=== PATIENT | male | born 1935 | race Caucasian/White ===

== ENCOUNTER 2019-07-28 03:42 | Emergency (ER) | payer BC, MEDICARE ==
--- NOTE | 2019-07-28 04:09 | PDOC ---
Attending Attestation - Resident Resident Name: Dang Thornton - ED Attending Attestation I have performed the following: I have examined & evaluated the patient, The case was reviewed & discussed with the resident, I agree w/resident's findings & plan - HPI HPI: 07/28/19 06:57 see resident hpi - Physicial Exam PE: 07/28/19 06:57 agree with resident exam - Medical Decision Making 07/28/19 06:57 83-year-old male with bleeding under a newly placed bridge currently on Eliquis Patient bleeding approximately 2 to 3 hours prior to arrival Direct pressure applied in our emergency department to the best of our abilities with gauze both to the gumline and directly to the bridge in attempt to tamponade the area which were unsuccessful After approximately 2 hours of attempts call placed to the OMFS service at [facility] who have graciously accepted the patient to the emergency department for evaluation by their service
[2019-07-28 04:45] VITALS: BMI 22.2
[2019-07-28] MEDS ORDERED: TRANEXAMIC ACID 1000 MG/10 ML VIAL IVPUSH ONE (04:54)
[2019-07-28] MEDS ORDERED: TRANEXAMIC ACID 1000 MG/10 ML VIAL ONE (04:59)
[2019-07-28 05:43] LABS: BASO % 0.6 % (0-2.0); EOS % 2.5 % (0-4.5); HEMOGLOBIN 11.7 GM/dL (11.7-16.9); LYMPH % 13.8 % (8-40); MCH 29.6 pg (25.7-33.7); MCHC 33.3 g/dl (32.0-35.9); MEAN CELL VOLUME 88.8 fl (80-96); MEAN PLT VOLUME 8.2 fl (7.5-11.1); MONO % 11.2 % (3.8-10.2); NEUT % 71.9 % (42.8-82.8); PLATELET COUNT 190 K/MM3 (134-434); RBC 3.94 M/mm3 (4.00-5.60); RDW 15.5 % (11.9-15.9); WHITE BLOOD COUNT 5.2 K/mm3 (4.0-10.0)
--- NOTE | 2019-07-28 05:43 | PDOC ---
History of Present Illness - General Chief Complaint: Vomiting Blood Stated Complaint: BLEEDING OF MOUTH Time Seen by Provider: 07/28/19 04:05 History Source: Patient Exam Limitations: No Limitations - History of Present Illness Initial Comments: 07/28/19 05:38 83y M with PMH of CVA on Eliquis, DM, HTN presenting to ED with complaints of oral bleeding. Patient had upper incisors removed on 07/20/19 and a temporary bridge placed 07/21/19 without complication. Patient states that this morning at around 1am he noticed blood continuously flowing out. He denies trauma but endorses eating something hard. Denies headache, dizziness, lightheadedness, chest pain, weakness, numbness, tingling. PMH: see hpi Meds: Eliquis, Januvia Allergies: nkda Past History - Past Medical History Allergies/Adverse Reactions: Allergies Allergy/AdvReac Type Severity Reaction Status Date / Time No Known Allergies Allergy Verified 07/28/19 04:36 Home Medications: Ambulatory Orders Apixaban [Eliquis -] 5 mg PO BID tablet 10/25/14 Sitagliptin Phosphate [Januvia -] 50 mg PO DAILY@0700 #30 tablet 07/18/16 CVA: Yes Diabetes: Yes HTN: Yes (not on meds) - Surgical History Cardiac Surgery: Yes Neurologic Surgery: Yes (neck surgery for arthritis) Orthopedic Surgery: Yes (knee arthroscopy, Carpel tunnel syndrome surgery) - Psycho Social/Smoking Cessation Hx Smoking History: Never smoked Have you smoked in the past 12 months: No If you are a former smoker, when did you quit?: 38 years ago Information on smoking cessation initiated: No Hx Alcohol Use: No Drug/Substance Use Hx: No Substance Use Type: None Hx Substance Use Treatment: No Review of Systems - Review of Systems Constitutional: No: Symptoms Reported HEENTM: Yes: See HPI Respiratory: No: Symptoms reported Cardiac (ROS): No: Symptoms Reported ABD/GI: No: Symptoms Reported : No: Symptoms Reported Musculoskeletal: No: Symptoms Reported Integumentary: No: Symptoms Reported Neurological: No: Symptoms reported *Physical Exam - Vital Signs Last Vital Signs Temp Pulse Resp BP Pulse Ox 98.1 F 82 16 142/83 100 07/28/19 03:45 07/28/19 03:45 07/28/19 03:45 07/28/19 03:45 07/28/19 03:45 - Physical Exam General Appearance: Yes: Nourished, Appropriately Dressed. No: Apparent Distress HEENT: positive: EOMI, SELWYN, Other (bleeding from underneath bridge of upper incisors. active bleeding, clots in the mouth) Neck: positive: Trachea midline, Supple Respiratory/Chest: positive: Lungs Clear, Normal Breath Sounds. negative: Crackles, Rales, Rhonchi, Stridor, Wheezing Cardiovascular: positive: Regular Rhythm, Regular Rate, S1, S2. negative: Edema , JVD, Murmur Gastrointestinal/Abdominal: positive: Normal Bowel Sounds, Soft. negative: Tender Extremity: positive: Normal Capillary Refill Integumentary: positive: Normal Color, Dry, Warm. 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 bleeding x5+ hours. TXA applied to gauze and advised patient to hold pressure. Given nature of bleeding and new temporary bridge, it may need to be removed to stop the bleeding. Spoke to Dr. Eller at [facility] who will accept patient for ED-ED transfer and OMFS will see patient in the ED. Pt is stable. Bloods drawn. patient agreed to transfer to [facility] for further evaluation. Discharge - Discharge Information Problems reviewed: Yes Clinical Impression/Diagnosis: Bleeding Condition: Stable Disposition: TRANSFER ACUTE CARE/OTHER HOSP - Follow up/Referral - Patient Discharge Instructions - Post Discharge Activity - Transfer to Acute Care Facility Receiving Facility Name: [facility]
[2019-07-28 05:51] LABS: INR 1.59 (0.83-1.09); PROTHROMBIN TIME (PATIENT) 18.8 SEC (9.7-13.0)
[2019-07-28 05:54] LABS: ACTIVATED PTT 42.3 SECONDS (25.2-36.5)
[2019-07-28 06:13] LABS: ALBUMIN 3.4 g/dl (3.4-5.0); BLOOD UREA NITROGEN 42.4 mg/dL (7-18); CALCIUM 9.2 mg/dL (8.5-10.1); CREATININE 1.5 mg/dL (0.55-1.3); POTASSIUM 4.8 mmol/L (3.5-5.1); TOT PROT 7.2 g/dl (6.4-8.2)
[2019-07-28 06:43] VITALS: BP 132/92; PULSE 87; TEMP 98.7
== END 2019-07-28 06:30 | disposition short-term general hospital (02) ==
LOC: JER 03:42
PROC: 3E033GC Introduction of Other Therapeutic Substance into Peripheral Vein, Percutaneous Approach (ICD-10-PCS; principal; 2019-07-28)
DX: R58 Hemorrhage, not elsewhere classified (principal); Z79.01 Long term (current) use of anticoagulants; Z86.73 Personal history of transient ischemic attack (TIA), and cerebral infarction without residual deficits; E11.9 Type 2 diabetes mellitus without complications; I10 Essential (primary) hypertension; Z87.891 Personal history of nicotine dependence
CPT/HCPCS: 36415; 80053; 85025; 85610; 85730; 99283-25

== ENCOUNTER 2019-08-21 17:04 | Emergency (ER) | payer BC, MEDICARE ==
[2019-08-21 17:21] VITALS: BP 160/91; PULSE 83; TEMP 97.2; BMI 23.9
--- NOTE | 2019-08-21 17:38 | PDOC ---
History of Present Illness - General Chief Complaint: Injury Stated Complaint: FAll Time Seen by Provider: 08/21/19 17:25 - History of Present Illness Initial Comments: 08/21/19 17:38 83 yo M PMH HTN, NIDDM, CVA 5 years ago without residual deficits on Eliquis, presenting after fall. Reports that he woke up from a nap around 1530, went to walk up his stairs, tripped, and fell forwards. Caught himself with his hand but still hit his head. No LOC, patient remembers everything. Denies preceding symptoms leading up to the fall. Specifically denies CP, SOB, dizziness, lightheadedness, palpitations, fevers/chills, [place], N/V. Past History - Past Medical History Allergies/Adverse Reactions: Allergies Allergy/AdvReac Type Severity Reaction Status Date / Time No Known Allergies Allergy Verified 08/21/19 17:07 Home Medications: Ambulatory Orders Apixaban [Eliquis -] 5 mg PO BID 08/21/19 Sitagliptin Phos/Metformin HCl [Janumet 50-500 mg Tablet] 1 each PO DAILY CVA: Yes COPD: No Diabetes: Yes HTN: Yes (not on meds) - Surgical History Cardiac Surgery: Yes Neurologic Surgery: Yes (neck surgery for arthritis) Orthopedic Surgery: Yes (knee arthroscopy, Carpel tunnel syndrome surgery) - Immunization History Immunization Up to Date: Yes - Psycho Social/Smoking Cessation Hx Smoking History: Never smoked Have you smoked in the past 12 months: No If you are a former smoker, when did you quit?: 38 years ago Hx Alcohol Use: No Drug/Substance Use Hx: No Substance Use Type: None Hx Substance Use Treatment: No Review of Systems - Review of Systems Comments:: 08/21/19 17:41 GENERAL/CONSTITUTIONAL: No fever or chills. No weakness. HEAD, EYES, EARS, NOSE AND THROAT: No change in vision. No ear pain or discharge. No sore throat. CARDIOVASCULAR: No chest pain or shortness of breath. RESPIRATORY: No cough, wheezing, or hemoptysis. GASTROINTESTINAL: No nausea, vomiting, diarrhea or constipation. GENITOURINARY: No dysuria, frequency, or change in urination. MUSCULOSKELETAL: No joint or muscle swelling or pain. No neck or back pain. SKIN: No rash NEUROLOGIC: No headache, vertigo, loss of consciousness, or change in strength/ sensation. ENDOCRINE: No increased thirst. No abnormal weight change. HEMATOLOGIC/LYMPHATIC: No anemia, easy bleeding, or history of blood clots. ALLERGIC/IMMUNOLOGIC: No hives or skin allergy *Physical Exam - Vital Signs Last Vital Signs Temp Pulse Resp BP Pulse Ox 97.2 F L 83 19 160/91 97 08/21/19 17:17 08/21/19 17:17 08/21/19 17:17 08/21/19 17:17 08/21/19 17:17 - Physical Exam 08/21/19 17:42 Gen: well-developed, well-nourished, NAD Neuro: AAOX4, CN II-XII intact, FTN intact, EOMI, PERRLA, 5/5 strength, SILT HEENT: scalp hematoma on L frontal scalp, normocephalic, dry mucous membranes Neck: trachea midline, supple CV: regular rate, regular rhythm, no murmurs, rubs, or gallops Pulm: CTA b/l, no wheezing Abd: soft, non-distended, non-tender MSK: full ROM, intact pulses Extr: no edema, no deformities Skin: warm, dry. 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 Small skin tear on R index finger. ED Treatment Course - RADIOLOGY Radiology Studies Ordered: Category Date Time Status CERVICAL SPINE CT W/O CONTR [CT] Stat CT Scan 08/21/19 17:[address] WITHOUT CONTRAST [CT] Stat CT Scan 08/21/19 17:35 Ordered Medical Decision Making - Medical Decision Making 08/21/19 17:43 83 year old male presenting after mechanical fall. Does take Eliquis. - CT head - CT C spine - likely dc 08/21/19 19:08 CT head: No CT evidence of acute intracranial pathology. Left frontal scalp hematoma. Chronic right cerebellar infarct. Small chronic right thalamic infarct. Possible small chronic left cerebellar infarct. CT C spine: no acute pathology. Will plan for dc. Discharge - Discharge Information Problems reviewed: Yes Clinical Impression/Diagnosis: Fall Condition: Stable Disposition: HOME - Admission No - Follow up/Referral Referrals: Cory Thorne MD [Primary Care Provider] - - Patient Discharge Instructions Patient Printed Discharge Instructions: How to Prevent Falls Additional Instructions: You were seen after a fall. Your CT scans did not show any acute issues. Please follow up with your primary care doctor within one week. Return to the ED if you develop concerning symptoms such as headache, nausea or vomiting, or confusion. - Post Discharge Activity
[2019-08-21] MEDS ORDERED: DIPHTH,PERTUSS(ACELL),TET 0.5 ML DISP.SYRIN IM ONE ×3 (17:46→18:26)
--- NOTE | 2019-08-21 17:48 | PDOC ---
Attending Attestation - Resident Resident Name: Marilyn Holder - ED Attending Attestation I have performed the following: I have examined & evaluated the patient, The case was reviewed & discussed with the resident, I agree w/resident's findings & plan, Exceptions are as noted - HPI HPI: 08/21/19 17:46 83 M with h/o DM, HTN, CVA, presents to ED after trip and fall. Pt was walking up the stairs and tripped, falling forward. He caught himself with his hands but still hit his head against the stairs. Denies LOC. Denies [place]/N/V. Denies neck or back pain. Pt denies any preceding lightheadedness/dizziness/palpitations. Denies CP/SOB. - Physicial Exam PE: 08/21/19 17:47 GENERAL: Awake, alert, and fully oriented, in no acute distress. HEAD: + R forehead abrasion EYES: PERRLA, EOMI, sclera anicteric, conjunctiva clear ENT: Auricles normal inspection, hearing grossly normal, nares patent, oropharynx clear without exudates. Moist mucosa NECK: Nontender, no stepoffs, Normal ROM, supple, no lymphadenopathy, JVD, or masses LUNGS: Breath sounds equal, clear to auscultation bilaterally. No wheezes, and no crackles HEART: Regular rate and rhythm, normal S1 and S2, no murmurs, rubs or gallops ABDOMEN: Soft, nontender, normoactive bowel sounds. No guarding, no rebound. No masses EXTREMITIES: Normal range of motion, no edema. No clubbing or cyanosis. No cords, erythema, or tenderness NEUROLOGICAL: Cranial nerves II through XII intact. 5/5 strength and sensation in all extremities, Normal speech, normal gait, normal cerebellar function SKIN: Warm, Dry, normal turgor, no rashes or lesions noted. - Medical Decision Making 08/21/19 17:47 83 M with head injury after mechanical fall. No syncope/presyncope. - CT head/c-spine - Tdap CTs unremarkable Pt is well appearing, with normal vitals. Clinically stable for DC at this time. I discussed the physical exam findings, ancillary test results and final diagnoses with the patient. I answered all of the patient's questions. The patient was satisfied with the care received and felt comfortable with the discharge plan and treatment plan. The patient agrees to follow up with the primary care physician within 24-72 hours.
== END 2019-08-21 21:04 | disposition home or self-care (01) ==
LOC: JER 17:04
PROC: 3E0234Z Introduction of Serum, Toxoid and Vaccine into Muscle, Percutaneous Approach (ICD-10-PCS; principal; 2019-08-21)
DX: S00.83XA Contusion of other part of head, initial encounter (principal); W10.8XXA Fall (on) (from) other stairs and steps, initial encounter; Y93.89 Activity, other specified; Y92.018 Other place in single-family (private) house as the place of occurrence of the external cause; Y99.8 Other external cause status; L43.9 Lichen planus, unspecified; I10 Essential (primary) hypertension; E11.9 Type 2 diabetes mellitus without complications; Z79.84 Long term (current) use of oral hypoglycemic drugs; Z86.73 Personal history of transient ischemic attack (TIA), and cerebral infarction without residual deficits; Z79.01 Long term (current) use of anticoagulants
CPT/HCPCS: 70450-TC; 72125-TC; 90715; 99282-25

== ENCOUNTER 2019-08-27 16:15 | Inpatient (IN) | payer BC, OTHER, MEDICARE ==
--- NOTE | 2019-08-27 16:28 | PDOC ---
Rapid Medical Evaluation Time Seen by Provider: 08/27/19 16:27 Medical Evaluation: 08/27/19 16:28 I performed a brief in-person evaluation of this patient. Sent from Urgent Care for PNA. SOB, pleuritic CP, cough productive of yellow sputum. No fevers. Pertinent physical exam findings: Alert, oriented, no distress. Irregular rhythm, S1/S2. Breath sounds diminished right side. SpO2 94%. I have ordered the following: Repeat CXR EKG Labs, blood cultures Patient to proceed to the ED for further evaluation. 08/27/19 16:31
[2019-08-27 17:17] LABS: BASO % 0.5 % (0-2.0); EOS % 2.3 % (0-4.5); HEMATOCRIT 36.6 % (35.4-49); HEMOGLOBIN 12.1 GM/dL (11.7-16.9); LYMPH % 15.1 % (8-40); MCH 29.4 pg (25.7-33.7); MCHC 32.9 g/dl (32.0-35.9); MEAN CELL VOLUME 89.3 fl (80-96); MEAN PLT VOLUME 8.5 fl (7.5-11.1); MONO % 15.1 % (3.8-10.2); PLATELET COUNT 205 K/MM3 (134-434); RDW 15.9 % (11.9-15.9); WHITE BLOOD COUNT 4.8 K/mm3 (4.0-10.0)
--- NOTE | 2019-08-27 17:34 | PDOC ---
History of Present Illness - General Chief Complaint: Shortness of Breath Stated Complaint: FLUID IN LUNG Time Seen by Provider: 08/27/19 16:27 History Source: Patient Exam Limitations: No Limitations - History of Present Illness Initial Comments: Darian Ortiz is an 83 yo M w a hx of HTN, CKD stage 3, NIDDM, CVA, A-fib on eliquis who presents to the [facility] er with 3 days of worsening SOB and difficulty breathing. He states he was here on Saturday after he fell down, had a CT of his head and neck which were grossly negative and sent home. He returns today because he is not able to lie flat at night and cannot sleep. He went to urgent care today where they did a chest x-ray which showed total white out of the right lower lung and they told him to come to the ER. He denies any pain in his chest, abdomen, head or neck. PCP: Cory Richardson Past History - Past Medical History Allergies/Adverse Reactions: Allergies Allergy/AdvReac Type Severity Reaction Status Date / Time No Known Allergies Allergy Verified 08/27/19 17:04 Home Medications: Ambulatory Orders Apixaban [Eliquis] 5 mg PO DAILY 08/27/19 Lisinopril 10 mg PO DAILY 08/27/19 Sitagliptin Phos/Metformin HCl [Janumet 50-500 mg Tablet] 1 each PO DAILY Cardiac Disorders: Yes (A.FIB) CVA: Yes COPD: No Diabetes: Yes (NIDDM) HTN: Yes Other medical history: HYPOXEMIA,KIDNEY DISEASE, - Immunization History Immunization Up to Date: No - Psycho Social/Smoking Cessation Hx Smoking History: Never smoked Have you smoked in the past 12 months: No Information on smoking cessation initiated: No Hx Alcohol Use: No Drug/Substance Use Hx: No Review of Systems - Review of Systems Able to Perform ROS?: Yes Comments:: CONSTITUTIONAL: Absent: fever, no chills, no fatigue EYES: Absent: visual changes ENT: Absent: ear pain, no sore throat CARDIOVASCULAR: Present: Chest pain Absent: no palpitations RESPIRATORY: Present: SOB Absent: cough GI: Absent: abdominal pain, no nausea, no vomiting, no constipation, no diarrhea GENITOURINARY: Absent: dysuria, no frequency, no hematuria MUSKULOSKELETAL: Absent: back pain, no arthralgia, no myalgia SKIN: Absent: rash NEURO: Absent: headache *Physical Exam - Vital Signs Last Vital Signs Temp Pulse Resp BP Pulse Ox 97.9 F 89 16 132/70 95 08/27/19 16:29 08/27/19 16:29 08/27/19 16:29 08/27/19 16:29 08/27/19 16:29 - Physical Exam GENERAL: Well-appearing, well-nourished. No apparent distress. HEENT: Normocephalic, atraumatic. PERRL, EOM intact. CARDIOVASCULAR: Normal S1, S2. Regular rate and rhythm. PULMONARY: There are no audible breath sounds in the right lower lung. No wheezing, rales or rhonchi. ABDOMEN: Soft, non-distended, non-tender. EXTREMITIES: Normal ROM in all four extremities. No gross deformities. SKIN: Warm, dry. No rash NEUROLOGICAL: No focal neurological deficits. ED Treatment Course - LABORATORY CBC & Chemistry Diagram: 08/27/19 16:49 08/27/19 16:49 - RADIOLOGY Radiology Studies Ordered: Category Date Time Status CHEST X-RAY PORTABLE* [RAD] Stat Radiology 08/27/19 17:28 Ordered Medical Decision Making - Medical Decision Making Patient presents with SOB and right lung white out on XR from urgent care after trauma 3 days ago likely with hemothorax VS: Vital Signs Temp Pulse Resp BP Pulse Ox 97.9 F 89 16 132/70 95 08/27/19 16:29 08/27/19 16:29 08/27/19 16:29 08/27/19 16:29 08/27/19 16:29 DDx IBNLT: Likely hemothorax, less likely pleural effusion Plan: Labs, coags, POCUS chest, CT chest w contrast POCUS Heart: Globally decreased EJ, no focal wall motion abnormalities, no pericardial effusion, nomal LV/RV ratio IVC: Plethoric, minimal variation with respiration Lungs: There is a massive fluid collection in the right lung field. No B-lines. This supports likely a hemothorax, possibly a very large pleural effusion FAST: Negative for intraperitoneal free fluid in all 4 quadrants PATIENT CLEARED FOR CONTRAST Chest CT: Read by radiologist as large right pleural effusion MDM: We are not going to drain the pleural effusion tonight because the patient is on eliquis and his INR, PT and PTT are all elevated. Given the fact that the patient is stable, has completely normal vital signs, is not tachycardic, is not tachypneic, and is satting at 100% at bedside we believe it is in the patients best interest not to have the chest tube placed tonight but to wait until he is off blood thinners for at least 12-24 hours before placing the chest tube. Will defer to IR when they think is best to place the chest tube. Plan is to hold all blood thinners for the night and have IR place a chest tube tomorrow or day after when INR has normalized. Dispo: Admit to hospital for large pleural effusion with drainage by IR tomorrow when INR normalized. Discharge - Discharge Information Problems reviewed: Yes Clinical Impression/Diagnosis: Pleural effusion on right, SOB (shortness of breath) Condition: Stable - Admission Yes - Follow up/Referral Referrals: Cory Thorne MD [Primary Care Provider] - - Patient Discharge Instructions - Post Discharge Activity
[2019-08-27 17:39] LABS: ALBUMIN 3.5 g/dl (3.4-5.0); BILIRUBIN,TOTAL 1.2 mg/dL (0.2-1); BLOOD UREA NITROGEN 26.2 mg/dL (7-18); CALCIUM 9.3 mg/dL (8.5-10.1); CREATININE 1.5 mg/dL (0.55-1.3); POTASSIUM 5.5 mmol/L (3.5-5.1); TOT PROT 7.5 g/dl (6.4-8.2)
--- NOTE | 2019-08-27 18:12 | PDOC ---
Documentation entered by Ian Hillman SCRIBE, acting as scribe for Karen Rose DO. Karen Rose DO: This documentation has been prepared by the Rafy mejai Daniel, SCRIBE, under my direction and personally reviewed by me in its entirety. I confirm that the documentation accurately reflects all work, treatment, procedures, and medical decision making performed by me. Attending Attestation - Resident Resident Name: Brett Walker - ED Attending Attestation I have performed the following: I have examined & evaluated the patient, The case was reviewed & discussed with the resident, I agree w/resident's findings & plan, Exceptions are as noted - HPI HPI: 08/27/19 18:15 The patient is an 83 year old male with a past medical history of HTN, stage 3 CKD, non insulin dependent diabetes, CVA, and afib (eliquis) here today for evaluation of shortness of breath. The patient reports that he has been short of breath with associated pleuritic chest pain, cough productive of yellow sputum, and orthopnea. He notes that he hasnt been able to sleep due to his orthopnea. He also notes that he fell walking up the stairs on saturday (08/21/2019 ) and was seen at [facility] where he had a negative head and c- spine CT. He reports going to an Urgent Care today due to his shortness of breath and was told to go to the ER. Patient denies headache, lightheadedness. Denies fever, chills. Denies nausea, vomiting, diarrhea, abdominal pain. Allergies: NKA PCP: Cory Thorne - Physicial Exam PE: 08/27/19 17:59 Constitutional: Awake, alert, oriented. No acute distress. Head: Normocephalic. Atraumatic Eyes: PERRL. EOMI. Conjunctivae are not pale. ENT: Mucous membranes are moist and intact. Posterior pharynx without exudates or erythema. Uvula midline. Neck: Supple. Full ROM. No lymphadenopathy. Cardiovascular: +irregularly irregular. Regular rate. S1, S2 regular. Distal pulses are 2+ and symmetric. Pulmonary/Chest: +diminished breath sounds on the right base. No evidence of respiratory distress. Clear to auscultation bilaterally No wheezing, rales or rhonchi. Abdominal: Soft and non-distended. There is no tenderness. No rebound, guarding or rigidity. No organomegaly. No palpable masses. Good bowel sounds. Back: No CVA tenderness. Musculoskeletal: No edema. No cyanosis. No clubbing. Full range of motion in all extremities. Nocalf tenderness. Radial/pedal pulses are intact and 2+ bilaterally Skin: +resolving echymosis of the face. Skin is warm and dry. No petechiae. No purpura. Neurological: Alert and oriented to person, place, and time. Cranial nerves II -XII are grossly intact. Normal speech. Strength is grossly symmetric. No sensory deficits. Psychiatric: Good eye contact. Normal interaction, affect and behavior. - Medical Decision Making 08/27/19 18:10 a/p: 83yo male s/p fall a week ago with sob when he lays flat -states he tripped on the stairs -underwent head and c spine ct that were neg in the ER -pt states mild R rib pain -pt sent from [facility] for eval of R pleural effusion on cxr -bedside ultrasound shows neg fast exam -Large R pleural effusion concerning for hemothorax -hgb was 12 at urgent care -pt is on eliquis 08/27/19 21:05 pt with large pleural effusion will need admission for drainage of the pleural effusion once off eliquis pt updated by the resident microblog sent to [facility] 08/27/19 22:17 resident discussed the case [facility] who accepts pt to service Heart Score/ECG Review - ECG Intrepretation Comment:: 08/27/19 18:14 afib at 72, l axis, nl interval, no acute st/t wave findings
[2019-08-27 19:43] LABS: INR 1.47 (0.83-1.09); PROTHROMBIN TIME (PATIENT) 17.4 SEC (9.7-13.0)
[2019-08-27] MEDS ORDERED: SODIUM CHLORIDE 0.9% 500 ML INFUS.BAG IV ONE (20:13)
--- NOTE | 2019-08-27 21:55 | PN ---
Teaching Attending Note Name of Resident: Rodrigue Loya ATTENDING PHYSICIAN STATEMENT I saw and evaluated the patient. I reviewed the resident's note and discussed the case with the resident. I agree with the resident's findings and plan as documented. SUBJECTIVE: Patient is an 83 year old man with a PMH of HTN, ?CKD, NIDDM, CVA and Afib (on eliquis) presents to the ER with shortness of breath. The patient reports that he has been short of breath with associated pleuritic chest pain, cough productive of yellow sputum, and orthopnea. He notes that he hasnt been able to sleep due to his orthopnea. He also notes that he fell walking up the stairs on saturday (08/21/2019) and was seen at [facility] where he had a negative head and c-spine CT. He reports going to an Urgent Care today due to his shortness of breath and was told to go to the ER. Patient denies headache, lightheadedness. Denies fever, chills. Denies nausea, vomiting, diarrhea, abdominal pain. Denies tobacco, alcohol or illicit drug use. No recent travels. OBJECTIVE: Alert Vital Signs Period Temp Pulse Resp BP Sys/Medina Pulse Ox Last 24 Hr 97.9 F 85-89 16-20 132-140/70-84 95-95 HEENT: No Jaundice, eye redness or discharge, PERRLA, EOMI. Normocephalic, atraumatic. External ears are normal and hearing is grossly intact. No nasal discharge. Neck: Supple, nontender. No palpable adenopathy or thyromegaly. No JVD Chest: Good effort. Decreased breath sounds and dullness in right lung. Heart: Regular. No S3, rub or murmur Abdomen: Not distended, soft, nontender and no HSM. No rebound or guarding. Normal bowel sounds. Ext: Peripheral pulses intact. No leg edema. Skin: Warm and dry. No petechiae, rash or ecchymosis. Neuro: Alert. Oriented x3. CN 2-12 grossly intact. Sensation grossly intact in all four extremities and DTR are symmetric. Psych: Appropriate mood and affect. Good insight. Home Medications Medication Instructions Recorded Apixaban [Eliquis] 5 mg PO DAILY 08/27/19 Lisinopril 10 mg PO DAILY 08/27/19 Sitagliptin Phos/Metformin HCl 1 each PO DAILY 08/27/19 [Janumet 50-500 mg Tablet] Abnormal Lab Results 08/27/19 08/27/19 08/27/19 16:49 16:49 18:31 Monocytes % 15.1 H PT with INR INR PTT (Actin FS) 42.8 H Potassium 5.5 H Chloride 110 H Anion Gap 5 L BUN 26.2 H Creatinine 1.5 H Random Glucose 133 H Total Bilirubin 1.2 H Alkaline Phosphatase 251 H 08/27/19 18:31 Monocytes % PT with INR 17.40 H INR 1.47 H PTT (Actin FS) Potassium Chloride Anion Gap BUN Creatinine Random Glucose Total Bilirubin Alkaline Phosphatase ASSESSMENT AND PLAN: 1. Right pleural effusion - Chest CT shows large right pleural effusion, RML/ RLL atelectatic changes, chronic lung disease, and prominent mediastinal lymph nodes. Etiology unclear. For thoracentesis by IR. EKG shows Afib with rate of 73, PVCs. LAD and IRBBB. Will get ECHO, RUQ sonogram, hold Eliquis and consult Pulmonary and Cardiology. Give lasix 40 mg IV. Will continue comprehensive care for all of patients comorbid conditions. 2. DM For now, we will hold the home diabetes drugs and implement sliding scale insulin regimen. Provide comprehensive diabetes care with patient teaching and counseling about the importance of adherence to prescribed diabetes regimen, euglycemia, eye care and foot care. 3. CKD/SHIRLENE ? - Urinalysis pending. Has risk factors for CKD. May have superimposed SHIRLENE of unclear cause and possibly type 4 RTA which explains hyperkalemia. No EKG changes of hyperkalemia - will treat conservatively and hydrate to enhance K+ excretion. Get CPK, PTH, kidney sonogram, phosphate and monitor urine output. Will consult nephrology and avoid nephrotoxic agents such as NSAIDS, aminoglycosides, contrast dyes and certain Alternative medicine products. 4. Hypertension - Restart suitable outpatient antihypertensive drugs when clinically appropriate. 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 Nonpharmacologic measures to control hypertension like weight loss , salt restriction and exercise discussed. Importance of adherence to treatment regimen and attainment of normotension emphasized. 5. DVT prophylaxis - SCD for now pending thoracentesis. 6. Advance directives - Full code
[2019-08-28] MEDS ORDERED: FUROSEMIDE 40 MG/4 ML INJECTABLE VIAL IVPUSH ONE (01:32)
[2019-08-28 02:18] LABS: EPI CELLS 0.2 /HPF (0-5/HPF); HYALINE CASTS 0 /lpf (0-8); URINE APPEARANCE CLEAR; URINE BACTERIA 5.3 /hpf (NEGATIVE); URINE BILIRUBIN NEGATIVE (NEGATIVE); URINE COLOR YELLOW; URINE GLUCOSE (UA) NEGATIVE (NEGATIVE); URINE KETONE NEGATIVE (NEGATIVE); URINE LEUK ESTERASE NEGATIVE (NEGATIVE); URINE NITRITE NEGATIVE (NEGATIVE); URINE PROTEIN 1+ (NEGATIVE); URINE RBC 1 /hpf (0-4); URINE UROBILINOGEN 0.2 mg/dL (0.2-1.0); URINE WBC 0 /hpf (0-5)
--- NOTE | 2019-08-28 02:46 | HP ---
CHIEF COMPLAINT: shortness of breath PCP: Dr. Cory Thorne Cardiology: Dr. 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 The patient had recently presented to the ED s/p a fall with head hit during which head CT and cervical spine CT were negative and patient was discharged. Shortly before the fall and after the fall the patient noted that he had been having increasing shortness of breath, orthopnea, dyspnea on exertion, some leg swelling, cough occasionally productive of yellow sputum. He stated that he usually uses 1 pillow to sleep at night but had been using 2 pillows in the last several days. He does not remember if he his his chest when he fell. He presented to the urgent care where a chest x-ray was performed and he was noted to have opacity of the R lung and sent to the emergency room for further evaluation. Also endorsed some lightheadedness. He denies chest pain, hemoptosis, dizziness, headaches, abdominal pain, n/v/c/d, dysuria, hematuria, focal weakness, numbness, tingling, back pain. Denies sick contacts or recent travel. ER course was notable for: (1) K 5.5, CRE 1.5 (baseline 1.4-1.5), Tbili 1.2, Alk phos 251 (2) CT chest as below (3) Given in ED NS 1L CT Chest IMPRESSION: 1. Large right pleural effusion with atelectatic changes of the right middle and lower lobes. This fluid is not consistent with a hemothorax. 2. Mild to moderate chronic lung disease. 3. Prominent mediastinal lymph nodes. 4. Calcified gallbladder. Please see above discussion. 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 Allergies No Known Allergies Allergy (Verified 08/27/19 17:04) HOME MEDICATIONS: Home Medications Medication Instructions Recorded Apixaban [Eliquis] 5 mg PO DAILY 08/27/19 Lisinopril 10 mg PO DAILY 08/27/19 Sitagliptin Phos/Metformin HCl 1 each PO DAILY 08/27/19 [Janumet 50-500 mg Tablet] REVIEW OF SYSTEMS CONSTITUTIONAL: generalized weakness, loss of appetite Absent: fever, chills, diaphoresis, malaise, weight change HEENT: Absent: rhinorrhea, nasal congestion, throat pain, throat swelling, difficulty swallowing, visual changes CARDIOVASCULAR: lightheadedness, peripheral edema Absent: chest pain, syncope, palpitations, irregular heart rate, RESPIRATORY: cough, shortness of breath, dyspnea with exertion, orthopnea Absent: wheezing, stridor, hemoptysis GASTROINTESTINAL: Absent: abdominal pain, abdominal distension, nausea, vomiting, diarrhea, constipation, GENITOURINARY: Absent: dysuria, frequency, urgency, hesitancy, hematuria MUSCULOSKELETAL: Absent: myalgia, arthralgia, joint swelling, back pain, neck pain SKIN: Absent: rash, itching, pallor HEMATOLOGIC/IMMUNOLOGIC: Absent: easy bleeding, easy bruising, lymphadenopathy, frequent infections ENDOCRINE: Absent: unexplained weight gain, unexplained weight loss, heat intolerance, cold intolerance NEUROLOGIC: Absent: headache, focal weakness or paresthesias, dizziness, unsteady gait, seizure, PSYCHIATRIC: Absent: anxiety, depression, suicidal or homicidal ideation, hallucinations. PHYSICAL EXAMINATION Vital Signs - 24 hr 08/27/19 08/27/19 08/28/19 16:29 20:14 00:37 Temperature 97.9 F Pulse Rate 89 Pulse Rate [ 85 88 Right Radial] Respiratory 16 20 20 Rate Blood Pressure 132/70 Blood Pressure 140/84 151/77 [Right Arm] O2 Sat by Pulse 95 95 96 Oximetry (%) 08/28/19 02:31 Temperature 97.5 F L Pulse Rate 84 Pulse Rate [ Right Radial] Respiratory 18 Rate Blood Pressure 165/90 Blood Pressure [Right Arm] O2 Sat by Pulse Oximetry (%) GENERAL: Awake, alert, and fully oriented, in no acute distress. HEAD: Ecchymoses around the L and R eyes, Ecchymoses on the L side of the forehead. EYES: Pupils equal, round and reactive to light, extraocular movements intact. EARS, NOSE, THROAT: Oropharynx clear without exudates. Moist mucous membranes. NECK: Normal range of motion, supple without lymphadenopathy, JVD. LUNGS: Significantly decreased breath sounds on the R midway up the back, with crackles noted on R middle lobe. Crackles in the L lower lobe. No wheezes, no accessory muscle. Unable to lay flat and breathe. HEART: Roselyn rate and irregular rhythm, normal S1 and S2 without murmur, rub. ABDOMEN: Soft, nontender, not distended, normoactive bowel sounds, no guarding, no rebound, no masses. MUSCULOSKELETAL: Normal range of motion at all joints. No bony deformities or tenderness. UPPER EXTREMITIES: 2+ pulses, warm, well-perfused. No cyanosis. No clubbing. No peripheral edema. LOWER EXTREMITIES: 2+ pulses, well-perfused. Cool distal extremities at the feet. No calf tenderness. 2+ edema up to the knees bilaterally. NEUROLOGICAL: Cranial nerves II-XII intact. 5/5 muscle strength bilaterally upper and lower extremities. Sensation intact to gross touch throughout. PSYCHIATRIC: Cooperative. Good eye contact. Appropriate mood and affect. SKIN: Dry, normal turgor, chronic venous stasis changes, normal capillary refill. Laboratory Results - last 24 hr 08/27/19 08/27/19 08/27/19 16:49 16:49 18:31 WBC 4.8 RBC 4.10 Hgb 12.1 Hct 36.6 MCV 89.3 MCH 29.4 MCHC 32.9 RDW 15.9 Plt Count 205 MPV 8.5 Absolute Neuts (auto) 3.2 Neutrophils % 67.0 Lymphocytes % 15.1 Monocytes % 15.1 H Eosinophils % 2.3 Basophils % 0.5 Nucleated RBC % 0 PT with INR INR PTT (Actin FS) 42.8 H Sodium 140 Potassium 5.5 H Chloride 110 H Carbon Dioxide 26 Anion Gap 5 L BUN 26.2 H Creatinine 1.5 H Est GFR (CKD-EPI)AfAm 48.85 Est GFR (CKD-EPI)NonAf 42.14 Random Glucose 133 H Calcium 9.3 Total Bilirubin 1.2 H AST 25 ALT 22 Alkaline Phosphatase 251 H Total Protein 7.5 Albumin 3.5 Urine Color Urine Appearance Urine pH Ur Specific Hudson Urine Protein Urine Glucose (UA) Urine Ketones Urine Blood Urine Nitrite Urine Bilirubin Urine Urobilinogen Ur Leukocyte Esterase Urine WBC (Auto) Urine RBC (Auto) Urine Casts (Auto) U Epithel Cells (Auto) Urine Bacteria (Auto) Ur Random Sodium Ur Random Potassium Ur Random Chloride Blood Type Antibody Screen 08/27/19 08/27/19 08/28/19 18:31 18:31 01:55 WBC RBC Hgb Hct MCV MCH MCHC RDW Plt Count MPV Absolute Neuts (auto) Neutrophils % Lymphocytes % Monocytes % Eosinophils % Basophils % Nucleated RBC % PT with INR 17.40 H INR 1.47 H PTT (Actin FS) Sodium Potassium Chloride Carbon Dioxide Anion Gap BUN Creatinine Est GFR (CKD-EPI)AfAm Est GFR (CKD-EPI)NonAf Random Glucose Calcium Total Bilirubin AST ALT Alkaline Phosphatase Total Protein Albumin Urine Color Urine Appearance Urine pH Ur Specific Hudson Urine Protein Urine Glucose (UA) Urine Ketones Urine Blood Urine Nitrite Urine Bilirubin Urine Urobilinogen Ur Leukocyte Esterase Urine WBC (Auto) Urine RBC (Auto) Urine Casts (Auto) U Epithel Cells (Auto) Urine Bacteria (Auto) Ur Random Sodium 123 Ur Random Potassium 25.0 Ur Random Chloride 142 Blood Type A POSITIVE Antibody Screen Negative 08/28/19 01:55 WBC RBC Hgb Hct MCV MCH MCHC RDW Plt Count MPV Absolute Neuts (auto) Neutrophils % Lymphocytes % Monocytes % Eosinophils % Basophils % Nucleated RBC % PT with INR INR PTT (Actin FS) Sodium Potassium Chloride Carbon Dioxide Anion Gap BUN Creatinine Est GFR (CKD-EPI)AfAm Est GFR (CKD-EPI)NonAf Random Glucose Calcium Total Bilirubin AST ALT Alkaline Phosphatase Total Protein Albumin Urine Color Yellow Urine Appearance Clear Urine pH 5.0 Ur Specific Hudson 1.023 Urine Protein 1+ H Urine Glucose (UA) Negative Urine Ketones Negative Urine Blood Negative Urine Nitrite Negative Urine Bilirubin Negative Urine Urobilinogen 0.2 Ur Leukocyte Esterase Negative Urine WBC (Auto) 0 Urine RBC (Auto) 1 Urine Casts (Auto) 0 U Epithel Cells (Auto) 0.2 Urine Bacteria (Auto) 5.3 Ur Random Sodium Ur Random Potassium Ur Random Chloride Blood Type Antibody Screen EKG--> afib with PVC, left axis deviation, incomplete RBBB, no ST segment changes, QTc 475 ASSESSMENT/PLAN: Darian Ortiz is an 83 year old male with a past medical history of afib ( on Eliquis) HTN, Stage 3 CKD, DM, 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 Shortness of breath secondary to R sided pleural effusion - CT as above, questionable if transudate vs hemothorax in setting of recent traumatic fall - hold Eliquis - POC in ED noting poor EF, will get echo to determine function - previous echo in 2016 with noted mild pulmonary HTN and elevated RV systolic pressures - IR consulted - Pulm consulted - cardiology consulted - Given Lasix 40mg IV, will monitor BMP for efficacy - repeat morning CXR - repeat coags - monitor I+Os CKD - likely in setting of HTN and DM - UA noting proteinuria - urine electrolytes, urine and serum osms, for measurment of TTKG - renal/bladder U/S - CPK, PTH levels Elevated biluribin/alk Phos - fractionate morning bili - GGT - RUQ U/S DM - BGM ACHS - ISS - A1c Afib - hold Eliquis for now in setting of possible thoracentesis with IR HTN - resume home meds when confirmed with pharmacy DVT PPx - SCDs until can resume chemical prophylaxis with home Eliquis FEN - no standing fluids, caution with fluids in setting of pleural effusion and questionable poor heart function - continue to monitor electrolytes and replete as necessary, hyperkalemia noted - NPO pending possible procedure Dispo - admit to med-surg Family Medical History Family Hx Cardiac Disorders: Mother (unspecified cardiac disorder) Family Hx Gastrointestinal Disorder: Mother ( from ruptured appendix) Family Hx Nuerologic Problems: Father (stroke) Visit type - Emergency Visit Emergency Visit: Yes ED Registration Date: 08/27/19 Care time: The patient presented to the Emergency Department on the above date and was hospitalized for further evaluation of their emergent condition. - New Patient This patient is new to me today: Yes Date on this admission: 08/28/19 - Critical Care Critical Care patient: No
[2019-08-28 05:59] LABS: BASO % 0.5 % (0-2.0); EOS % 0.9 % (0-4.5); HEMATOCRIT 33.7 % (35.4-49); HEMOGLOBIN 11.1 GM/dL (11.7-16.9); LYMPH % 16.6 % (8-40); MCH 29.2 pg (25.7-33.7); MCHC 33.1 g/dl (32.0-35.9); MEAN CELL VOLUME 88.3 fl (80-96); MEAN PLT VOLUME 8.3 fl (7.5-11.1); MONO % 13.6 % (3.8-10.2); NEUT % 68.4 % (42.8-82.8); PLATELET COUNT 182 K/MM3 (134-434); RBC 3.81 M/mm3 (4.00-5.60); RDW 15.6 % (11.9-15.9); WHITE BLOOD COUNT 4.4 K/mm3 (4.0-10.0)
[2019-08-28 06:05] LABS: ACTIVATED PTT 40.7 SECONDS (25.2-36.5); INR 1.34 (0.83-1.09); PROTHROMBIN TIME (PATIENT) 15.9 SEC (9.7-13.0)
[2019-08-28] MEDS: INSULIN SLIDING SCALE (NOVOLOG) 1 VIAL SQ SCH ×4 (06:07→23:23)
[2019-08-28 07:21] LABS: ALBUMIN 3.2 g/dl (3.4-5.0); BILIRUBIN,DIRECT 0.4 mg/dL (0.0-0.2); BILIRUBIN,TOTAL 1.2 mg/dL (0.2-1); BLOOD UREA NITROGEN 25.7 mg/dL (7-18); CALCIUM 8.9 mg/dL (8.5-10.1); CREATININE 1.2 mg/dL (0.55-1.3); MAGNESIUM 1.8 mg/dL (1.8-2.4); PHOSPHOROUS 3.6 mg/dL (2.5-4.9); POTASSIUM 4.6 mmol/L (3.5-5.1); TOT PROT 6.6 g/dl (6.4-8.2)
[2019-08-28] MEDS: FUROSEMIDE 40 MG/4 ML INJECTABLE VIAL IVPUSH SCH (11:34)
--- NOTE | 2019-08-28 11:49 | ECHO ---
Name: JAYDE AYOUB Exam:Adult Echocardiogram Study Date: 08/28/2019 09:22 AM Age: 83 yrs Height: 69 in Weight: 175 lb BSA: 2.0 m2 MMode/2D Measurements & Calculations IVSd: 1.4 cm Ao root diam: 3.3 cm LVIDd: 3.6 cm LA dimension: 4.7 cm LVIDs: 2.8 cm LVPWd: 1.3 cm LVPWs: 1.4 cm EDV(Teich): 56.1 ml ESV(Teich): 28.6 ml LVOT diam: 1.9 cm TAPSE: 1.3 cm RV S Maikel: 12.2 cm/sec Doppler Measurements & Calculations MV V2 max: 179.1 cm/sec MV E max maikel: 165.1 cm/sec MV max P.8 mmHg MV A max maikel: 81.2 cm/sec MV V2 mean: 88.2 cm/sec MV E/A: 2.0 MV mean P.7 mmHg MV dec time: 0.14 sec MV V2 VTI: 45.6 cm Ao V2 max: 155.0 cm/sec LV V1 max P.5 mmHg Ao max P.6 mmHg LV V1 max: 61.7 cm/sec FARA(V,D): 1.2 cm2 MR max maikel: 491.5 cm/sec TR max maikel: 281.6 cm/sec MR max P.7 mmHg TR max P.2 mmHg PA V2 max: 85.5 cm/sec PI end-d maikel: 112.7 cm/sec PA max P.9 mmHg Med Peak E' Maikel: 3.4 cm/sec Med E/e': 48.4 Left Ventricle There is mild concentric left ventricular hypertrophy. Left ventricular systolic function is borderli ne reduced. Ejection Fraction = 50%. Right Ventricle The right ventricle is grossly normal size. The right ventricular systolic function is grossly normal . Atria The left atrium is moderately dilated. Right atrial size is normal. Mitral Valve There is moderate to severe mitral valve thickening. At least mild functional mitral stenosis. There is mild mitral regurgitation. Tricuspid Valve The tricuspid valve is normal in structure and function. There is moderate tricuspid regurgitation. R ight ventricular systolic pressure is elevated at 30-40mmHg. Aortic Valve There is mild aortic sclerosis.;. No hemodynamically significant valvular aortic stenosis. Mild aorti c regurgitation. Pulmonic Valve The pulmonic valve is not well seen, but is grossly normal. There is no pulmonic valvular stenosis. M ild pulmonic valvular regurgitation. Great Vessels The aortic root is normal size. Pericardium/Pleura There is no pericardial effusion. Interpretation Summary There is mild concentric left ventricular hypertrophy. Left ventricular systolic function is borderline reduced. Ejection Fraction = 50%. The left atrium is moderately dilated. There is moderate to severe mitral valve thickening. At least mild functional mitral stenosis. There is mild mitral regurgitation. There is moderate tricuspid regurgitation. Right ventricular systolic pressure is elevated at 30-40mmHg. There is mild aortic sclerosis.; Mild aortic regurgitation. MD Blevins *Mansoor 08/28/2019 11:48 AM
--- NOTE | 2019-08-28 13:47 | EKG ---
Test Reason : Blood Pressure : / mmHG Vent. Rate : 073 BPM Atrial Rate : 077 BPM P-R Int : 000 ms QRS Dur : 118 ms QT Int : 432 ms P-R-T Axes : 000 -41 035 degrees QTc Int : 475 ms ATRIAL FIBRILLATION WITH PREMATURE VENTRICULAR OR ABERRANTLY CONDUCTED COMPLEXES LEFT AXIS DEVIATION INCOMPLETE RIGHT BUNDLE BRANCH BLOCK ABNORMAL ECG NO PREVIOUS ECGS AVAILABLE Confirmed by FABIANO DASILVA MD ([id number]) on 08/28/2019 1:47:15 PM Referred By: Confirmed By:FABIANO DASILVA MD
--- NOTE | 2019-08-28 14:24 | CON.PULM ---
Consult Consult Specialty:: PULMONARY Referred by:: REBECCA Reason for Consultation:: PLEURAL EFFUSION - History of Present Illness Chief Complaint: SOB History of Present Illness: 83 yo M w a hx of HTN, CKD stage 3, NIDDM, CVA, A-fib on eliquis who presents to the [facility] er with 3 days of worsening SOB and difficulty breathing. He states he was here on Saturday after he fell down, had a CT of his head and neck which were grossly negative and sent home. He returns today because he is not able to lie flat at night and cannot sleep. He went to urgent care today where they did a chest x-ray which showed total white out of the right lower lung and they told him to come to the ER. He denies any pain in his chest, abdomen, head or neck. - History Source History Provided By: Patient, Medical Record Limitations to Obtaining History: Poor Historian - Past Medical History OIM ARCHITECT: Yes: CVA. No: Alzheimer's, Dementia Cardio/Vascular: Yes: AFIB, HTN, Mitral Insufficiency Renal/: Yes: Renal Inusuff Heme/Onc: Yes: Anemia Endocrine: Yes: Diabetes Mellitus - Alcohol/Substance Use Hx Alcohol Use: No - Smoking History Smoking history: Never smoked Have you smoked in the past 12 months: No Home Medications - Allergies Allergies/Adverse Reactions: Allergies Allergy/AdvReac Type Severity Reaction Status Date / Time No Known Allergies Allergy Verified 08/27/19 17:04 - Home Medications Home Medications: Ambulatory Orders Apixaban [Eliquis] 5 mg PO BID 08/27/19 Lisinopril 10 mg PO DAILY 08/27/19 Sitagliptin Phos/Metformin HCl [Janumet 50-500 mg Tablet] 1 each PO BID Family Medical History Family History: Unremarkable Review of Systems - Review of Systems Constitutional: denies: Fever Eyes: denies: Blurred Vision HENT: denies: Difficult Swallowing Neck: reports: Decreased ROM Cardiovascular: reports: Chest Pain, Shortness of Breath. denies: Palpitations Respiratory: reports: Cough, Exercise Intolerance, Orthopnea, SOB, SOB on Exertion. denies: Hemoptysis, Wheezing Gastrointestinal: denies: Abdominal Pain Genitourinary: denies: Burning Breasts: reports: No Symptoms Reported Physical Exam Vital Sings: Vital Signs Temperature 98.0 F 08/28/19 06:00 Pulse Rate 86 08/28/19 06:00 Respiratory Rate 18 08/28/19 06:00 Blood Pressure 141/100 08/28/19 06:00 O2 Sat by Pulse Oximetry (%) 97 08/28/19 09:00 Constitutional: Yes: Calm Eyes: Yes: EOM Intact HENT: Yes: Normocephalic Neck: Yes: Trachea Midline Cardiovascular: Yes: Pulse Irregular, S1, S2 Respiratory: Yes: Diminished (ONRIGHT BASE EXTENDING UP 3/4 LUNG FIELD), Dullness Gastrointestinal: Yes: Normal Bowel Sounds, Soft Extremities: Yes: Other (ARTHRIC CHANGES BILATERAL HANDS) Edema: LLE: Trace, RLE: Trace Integumentary: Yes: WNL Neurological: Yes: WNL ...Motor Strength: WNL Psychiatric: Yes: WNL Labs: CBC, BMP 08/28/19 05:19 08/28/19 05:19 REST REVIEWED Imaging - Results Chest X-ray: Report Reviewed, Image Reviewed Cat Scan: Report Reviewed, Image Reviewed EKG: Report Reviewed, Image Reviewed Other: Report Reviewed Problem List - Problems (1) Diabetes Code(s): E11.9 - TYPE 2 DIABETES MELLITUS WITHOUT COMPLICATIONS (2) Pleural effusion on right Code(s): J90 - PLEURAL EFFUSION, NOT ELSEWHERE CLASSIFIED (3) SOB (shortness of breath) Code(s): R06.02 - SHORTNESS OF BREATH (4) Hypertension Code(s): I10 - ESSENTIAL (PRIMARY) HYPERTENSION Assessment/Plan POOR HISTORIAN HOWEVER HE STATES THE SOB PREDATED THE FALL LARGE VOLUME RIGHT PLEURAL EFFUSION HTN/DM/CVA/ FORMER SMOKER QUIT 40 YEARS AGO WILL NEED TO HOLD ELIQUIS 48 HOURS AND PERFORM THORACENTESIS TO DETERMINE NATURE OF FLUID LARGE VOLUME PL FLUID CAN INDICATE MALIGNANT EFFUSION/GIVEN AGE AND H/O WEIGHT LOSS DOUBT FLUID REPRESENTS BLOOD FROM MECHANICAL FALL HGB HASN'T DROPPED SIGNIFICANTLY AND THE SOB PREDATED THE FALL WILL FOLLOW Teo ARROYO MD
--- NOTE | 2019-08-28 14:37 | PN ---
Physical Exam: SUBJECTIVE: Patient seen and examined at bedside. Pt lying comfortably with 2L NC on. OBJECTIVE: Vital Signs Period Temp Pulse Resp BP Sys/[place] Pulse Ox Last 24 Hr 97.5 F-98.0 F 84-89 16-20 132-165/70-100 95-98 GENERAL: The patient is awake, alert, and fully oriented, in no acute distress. LUNGS: Breath sounds reduced at RLL, tactile fremitus reduced at bases, no wheezes, crackles, accessory muscle use. HEART: Regular rate and rhythm, S1, S2 without murmur, rub or gallop. ABDOMEN: Soft, nontender, nondistended, normoactive bowel sounds. EXTREMITIES: 2+ pulses, warm, well-perfused, no edema, bruising b/l LE's. Laboratory Results - last 24 hr 08/27/19 08/27/19 08/27/19 16:49 16:49 18:31 WBC 4.8 RBC 4.10 Hgb 12.1 Hct 36.6 MCV 89.3 MCH 29.4 MCHC 32.9 RDW 15.9 Plt Count 205 MPV 8.5 Absolute Neuts (auto) 3.2 Neutrophils % 67.0 Lymphocytes % 15.1 Monocytes % 15.1 H Eosinophils % 2.3 Basophils % 0.5 Nucleated RBC % 0 PT with INR INR PTT (Actin FS) 42.8 H Sodium 140 Potassium 5.5 H Chloride 110 H Carbon Dioxide 26 Anion Gap 5 L BUN 26.2 H Creatinine 1.5 H Est GFR (CKD-EPI)AfAm 48.85 Est GFR (CKD-EPI)NonAf 42.14 POC Glucometer Random Glucose 133 H Hemoglobin A1c % Serum Osmolality Calcium 9.3 Phosphorus Magnesium Total Bilirubin 1.2 H Direct Bilirubin GGT AST 25 ALT 22 Alkaline Phosphatase 251 H Creatine Kinase Total Protein 7.5 Albumin 3.5 Urine Color Urine Appearance Urine pH Ur Specific [place] Urine Protein Urine Glucose (UA) Urine Ketones Urine Blood Urine Nitrite Urine Bilirubin Urine Urobilinogen Ur Leukocyte Esterase Urine WBC (Auto) Urine RBC (Auto) Urine Casts (Auto) U Epithel Cells (Auto) Urine Bacteria (Auto) Urine Osmolality Ur Random Sodium Ur Random Potassium Ur Random Chloride Blood Type Antibody Screen 08/28/19 08/28/19 08/28/19 01:55 01:55 05:19 WBC 4.4 RBC 3.81 L Hgb 11.1 L Hct 33.7 L MCV 88.3 MCH 29.2 MCHC 33.1 RDW 15.6 Plt Count 182 MPV 8.3 Absolute Neuts (auto) 3.0 Neutrophils % 68.4 Lymphocytes % 16.6 Monocytes % 13.6 H Eosinophils % 0.9 Basophils % 0.5 Nucleated RBC % 0 PT with INR INR PTT (Actin FS) Sodium Potassium Chloride Carbon Dioxide Anion Gap BUN Creatinine Est GFR (CKD-EPI)AfAm Est GFR (CKD-EPI)NonAf POC Glucometer Random Glucose Hemoglobin A1c % Serum Osmolality Calcium Phosphorus Magnesium Total Bilirubin Direct Bilirubin GGT AST ALT Alkaline Phosphatase Creatine Kinase Total Protein Albumin Urine Color Yellow Urine Appearance Clear Urine pH 5.0 Ur Specific [place] 1.023 Urine Protein 1+ H Urine Glucose (UA) Negative Urine Ketones Negative Urine Blood Negative Urine Nitrite Negative Urine Bilirubin Negative Urine Urobilinogen 0.2 Ur Leukocyte Esterase Negative Urine WBC (Auto) 0 Urine RBC (Auto) 1 Urine Casts (Auto) 0 U Epithel Cells (Auto) 0.2 Urine Bacteria (Auto) 5.3 Urine Osmolality 556 Ur Random Sodium Ur Random Potassium Ur Random Chloride Blood Type Antibody Screen 08/28/19 08/28/19 08/28/19 05:19 05:19 05:19 WBC RBC Hgb Hct MCV MCH MCHC RDW Plt Count MPV Absolute Neuts (auto) Neutrophils % Lymphocytes % Monocytes % Eosinophils % Basophils % Nucleated RBC % PT with INR 15.90 H INR 1.34 H PTT (Actin FS) 40.7 H Sodium 141 Potassium 4.6 Chloride 111 H Carbon Dioxide 23 Anion Gap 6 L BUN 25.7 H Creatinine 1.2 Est GFR (CKD-EPI)AfAm 63.97 Est GFR (CKD-EPI)NonAf 55.20 POC Glucometer Random Glucose 126 H Hemoglobin A1c % 7.4 H Serum Osmolality Calcium 8.9 Phosphorus 3.6 Magnesium 1.8 Total Bilirubin 1.2 H Direct Bilirubin 0.4 H GGT 131 H AST 22 ALT 20 Alkaline Phosphatase 219 H Creatine Kinase 68 Total Protein 6.6 Albumin 3.2 L Urine Color Urine Appearance Urine pH Ur Specific [place] Urine Protein Urine Glucose (UA) Urine Ketones Urine Blood Urine Nitrite Urine Bilirubin Urine Urobilinogen Ur Leukocyte Esterase Urine WBC (Auto) Urine RBC (Auto) Urine Casts (Auto) U Epithel Cells (Auto) Urine Bacteria (Auto) Urine Osmolality Ur Random Sodium Ur Random Potassium Ur Random Chloride Blood Type Antibody Screen 08/28/19 08/28/19 08/28/19 05:31 07:50 07:50 WBC RBC Hgb Hct MCV MCH MCHC RDW Plt Count MPV Absolute Neuts (auto) Neutrophils % Lymphocytes % Monocytes % Eosinophils % Basophils % Nucleated RBC % PT with INR INR PTT (Actin FS) Sodium Potassium Chloride Carbon Dioxide Anion Gap BUN Creatinine Est GFR (CKD-EPI)AfAm Est GFR (CKD-EPI)NonAf POC Glucometer 120 Random Glucose Hemoglobin A1c % Serum Osmolality 301 Calcium Phosphorus Magnesium Total Bilirubin Direct Bilirubin GGT AST ALT Alkaline Phosphatase Creatine Kinase Total Protein Albumin Urine Color Urine Appearance Urine pH Ur Specific [place] Urine Protein Urine Glucose (UA) Urine Ketones Urine Blood Urine Nitrite Urine Bilirubin Urine Urobilinogen Ur Leukocyte Esterase Urine WBC (Auto) Urine RBC (Auto) Urine Casts (Auto) U Epithel Cells (Auto) Urine Bacteria (Auto) Urine Osmolality Ur Random Sodium Ur Random Potassium Ur Random Chloride Blood Type A POSITIVE Antibody Screen Active Medications Generic Name Dose Route Start Last Admin Trade Name Dorothy PRN Reason Stop Dose Admin Furosemide 40 mg 08/28/19 10:00 08/28/19 11:34 Lasix Injection - IVPUSH 40 mg DAILY GLADIS Administration Insulin Aspart 1 vial 08/28/19 07:00 08/28/19 11:34 Novolog Vial Sliding Scale - SQ Not Given ACHS [facility] Protocol ASSESSMENT/PLAN: EKG--> afib with PVC, left axis deviation, incomplete RBBB, no ST segment changes, QTc 475 ASSESSMENT/PLAN: Darian Ortiz is an 83 year old male with a past medical history of afib ( on Eliquis) HTN, Stage 3 CKD, DM, 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 Shortness of breath 2/2 R sided pleural effusion - CT shows large RT side d pleural effusion - doubt hemothorax is present given Hgb is stable and pt SOB from prior to fall and no signs of rib contusion on exam, and lack of pleuritic pain - hold Eliquis for thoracocentesis tomorrow, keep pt NPO - will assess fluid for transudate vs exudate. - Could be 2/2 CHF given echo findings showing reduced EF, valvular disease vs possible malignancy given pt's age and smoking history. - will continue lasix - echo- borderline reduced EF (50%) with Mitral stenosis. - IR consulted - Appreciate Dr. Erin freeman stating its not a pneumothorax/hemothorax and plan is for for thoracic tap for fluid analysis. - cardiology consulted recommending continuing to hold eliquis and AF is stable , continuing lasix. CKD - likely in setting of HTN and DM - UA noting proteinuria - urine electrolytes, urine and serum osms, for measurment of TTKG - renal/bladder U/S showing b/l hydronephrosis and anuria. - CPK, PTH levels Elevated biluribin/alk Phos - T bili, direct bili slight elevation - RUQ U/S normal, normal cbd diameter for pts age. DM - BGM ACHS - ISS - A1c Afib - hold Eliquis for now in setting of possible thoracentesis with IR HTN - resume home meds when confirmed with pharmacy DVT PPx - SCDs until can resume chemical prophylaxis with home Eliquis FEN - no standing fluids, caution with fluids in setting of pleural effusion and questionable poor heart function - continue to monitor electrolytes and replete as necessary, hyperkalemia resolved Visit type - Emergency Visit Emergency Visit: Yes ED Registration Date: 08/27/19 Care time: The patient presented to the Emergency Department on the above date and was hospitalized for further evaluation of their emergent condition. - New Patient This patient is new to me today: Yes Date on this admission: 08/31/19 - Critical Care Critical Care patient: No - Discharge Referral Referred to [facility] No ATTENDING PHYSICIAN STATEMENT I saw and evaluated the patient. I reviewed the resident's note and discussed the case with the resident. I agree with the resident's findings and plan as documented. SUBJECTIVE: OBJECTIVE: ASSESSMENT AND PLAN:
--- NOTE | 2019-08-28 15:30 | CON.CARD ---
Cardiology Consult (text) - Consultation Consultation Note: cc: sob hpi: 83 m hx dm, htn, pafib, cva here with sob. Past few weeks has noticed gradually worsening tolentino. No cp palps dizzy loc pnd le edema. Mild orthopnea. Found to have large right pleural eff, sxs better after iv lasix. pmh: per hpi psh: spine surgery social: ex tob ros: per hpi, +cough; all others nl fam: no premature cad meds: Home Medications Medication Instructions Recorded Apixaban [Eliquis] 5 mg PO BID 08/27/19 Lisinopril 10 mg PO DAILY 08/27/19 Sitagliptin Phos/Metformin HCl 1 each PO BID 08/27/19 [Janumet 50-500 mg Tablet] pe: Vital Signs Period Temp Pulse Resp BP Sys/Medina Pulse Ox Last 24 Hr 97.4 F-98.0 F 75-89 16-20 126-165/67-100 95-98 nad no jvd irreg s1 s2 no mrg dec bs right, nl eff aao3 no le e/c/c abd nt nd pos bs no jaundice diaphoresis pos dp pt no carotid bruits Laboratory Last Values WBC 4.4 K/mm3 (4.0-10.0) 08/28/19 05:19 RBC 3.81 M/mm3 (4.00-5.60) L 08/28/19 05:19 Hgb 11.1 GM/dL (11.7-16.9) L 08/28/19 05:19 Hct 33.7 % (35.4-49) L 08/28/19 05:19 MCV 88.3 fl (80-96) 08/28/19 05:19 MCH 29.2 pg (25.7-33.7) 08/28/19 05:19 MCHC 33.1 g/dl (32.0-35.9) 08/28/19 05:19 RDW 15.6 % (11.9-15.9) 08/28/19 05:19 Plt Count 182 K/MM3 (134-434) 08/28/19 05:19 MPV 8.3 fl (7.5-11.1) 08/28/19 05:19 Absolute Neuts (auto) 3.0 K/mm3 (1.5-8.0) 08/28/19 05:19 Neutrophils % 68.4 % (42.8-82.8) 08/28/19 05:19 Lymphocytes % 16.6 % (8-40) 08/28/19 05:19 Monocytes % 13.6 % (3.8-10.2) H 08/28/19 05:19 Eosinophils % 0.9 % (0-4.5) 08/28/19 05:19 Basophils % 0.5 % (0-2.0) 08/28/19 05:19 Nucleated RBC % 0 % (0-0) 08/28/19 05:19 PT with INR 15.90 SEC (9.7-13.0) H 08/28/19 05:19 INR 1.34 (0.83-1.09) H 08/28/19 05:19 PTT (Actin FS) 40.7 SECONDS (25.2-36.5) H 08/28/19 05:19 Sodium 141 mmol/L (136-145) 08/28/19 05:19 Potassium 4.6 mmol/L (3.5-5.1) 08/28/19 05:19 Chloride 111 mmol/L (98-107) H 08/28/19 05:19 Carbon Dioxide 23 mmol/L (21-32) 08/28/19 05:19 Anion Gap 6 MMOL/L (8-16) L 08/28/19 05:19 BUN 25.7 mg/dL (7-18) H 08/28/19 05:19 Creatinine 1.2 mg/dL (0.55-1.3) 08/28/19 05:19 Est GFR (CKD-EPI)AfAm 63.97 08/28/19 05:19 Est GFR (CKD-EPI)NonAf 55.20 08/28/19 05:19 POC Glucometer 112 UNITS (80-120) 08/28/19 11:30 Random Glucose 126 mg/dL (74-106) H 08/28/19 05:19 Hemoglobin A1c % 7.4 % (4.2-6.3) H 08/28/19 05:19 Serum Osmolality 301 mosm/kg (278-305) 08/28/19 07:50 Calcium 8.9 mg/dL (8.5-10.1) 08/28/19 05:19 Phosphorus 3.6 mg/dL (2.5-4.9) 08/28/19 05:19 Magnesium 1.8 mg/dL (1.8-2.4) 08/28/19 05:19 Total Bilirubin 1.2 mg/dL (0.2-1) H 08/28/19 05:19 Direct Bilirubin 0.4 mg/dL (0.0-0.2) H 08/28/19 05:19 GGT 131 U/L (5-85) H 08/28/19 05:19 AST 22 U/L (15-37) 08/28/19 05:19 ALT 20 U/L (13-61) 08/28/19 05:19 Alkaline Phosphatase 219 U/L (45-117) H 08/28/19 05:19 Creatine Kinase 68 U/L (26-308) 08/28/19 05:19 Total Protein 6.6 g/dl (6.4-8.2) 08/28/19 05:19 Albumin 3.2 g/dl (3.4-5.0) L 08/28/19 05:19 Urine Color Yellow 08/28/19 01:55 Urine Appearance Clear 08/28/19 01:55 Urine pH 5.0 (5.0-8.0) 08/28/19 01:55 Ur Specific [place] 1.023 (1.010-1.035) 08/28/19 01:55 Urine Protein 1+ (NEGATIVE) H 08/28/19 01:55 Urine Glucose (UA) Negative (NEGATIVE) 08/28/19 01:55 Urine Ketones Negative (NEGATIVE) 08/28/19 01:55 Urine Blood Negative (NEGATIVE) 08/28/19 01:55 Urine Nitrite Negative (NEGATIVE) 08/28/19 01:55 Urine Bilirubin Negative (NEGATIVE) 08/28/19 01:55 Urine Urobilinogen 0.2 mg/dL (0.2-1.0) 08/28/19 01:55 Ur Leukocyte Esterase Negative (NEGATIVE) 08/28/19 01:55 Urine WBC (Auto) 0 /hpf (0-5) 08/28/19 01:55 Urine RBC (Auto) 1 /hpf (0-4) 08/28/19 01:55 Urine Casts (Auto) 0 /lpf (0-8) 08/28/19 01:55 U Epithel Cells (Auto) 0.2 /HPF (0-5/HPF) 08/28/19 01:55 Urine Bacteria (Auto) 5.3 /hpf (NEGATIVE) 08/28/19 01:55 Urine Osmolality 556 mosm/kg (300-900) 08/28/19 01:55 Ur Random Sodium 123 MMOL/L (40-220) 08/28/19 01:55 Ur Random Potassium 25.0 MMOL/L (25-125) 08/28/19 01:55 Ur Random Chloride 142 MMOL/L (110-250) 08/28/19 01:55 Blood Type A POSITIVE 08/28/19 07:50 Antibody Screen Negative 08/27/19 18:31 echo 08/2019: lvh, lvef 50, nl rv, lae, mild ms, mild mr, mod tr, rvsp 30-40, mild ar ecg: afib, rate 73, old irbbb cxr: large r eff mibi 07/2016: no ischemia a/p: 83 m hx dm, htn, pafib, cva here with sob. sob, right pleural eff: -etiology unclear, does not appear to be chf -cont iv lasix for now, daily chem7 -plan for thoracentesis -pulm following htn: -cont home afia pafib: -rate controlled w/o meds -eliquis held for now until thoracentesis
--- NOTE | 2019-08-28 19:03 | PN ---
Teaching Attending Note Name of Resident: Louis Manning ATTENDING PHYSICIAN STATEMENT I saw and evaluated the patient. I reviewed the resident's note and discussed the case with the resident. I agree with the resident's findings and plan as documented. SUBJECTIVE: Feels well - no complaints. Improvement in SOB. No CP/palpitations OBJECTIVE: Afebrile, Hemodynamically Stable Last Vital Signs Temp Pulse Resp BP Pulse Ox 98.3 F 68 18 103/56 L 97 08/28/19 18:00 08/28/19 18:00 08/28/19 18:00 08/28/19 18:00 08/28/19 09:00 HEENT - facial bruising forehead and trevon-orbital region. EOMI. Heart - S1, S2, RRR Lungs - Decreased air entry RLZ Abdomen - soft, non-tender. Bowel sounds normal Extremities - mild edema, chronic venous stasis, no calf tenderness. Neuro - AAO x 3. SELWYN. Tone/Power normal all extremities. Laboratory Results - last 24 hr 08/27/19 08/27/19 08/27/19 18:31 18:31 18:31 WBC RBC Hgb Hct MCV MCH MCHC RDW Plt Count MPV Absolute Neuts (auto) Neutrophils % Lymphocytes % Monocytes % Eosinophils % Basophils % Nucleated RBC % PT with INR 17.40 H INR 1.47 H PTT (Actin FS) 42.8 H Sodium Potassium Chloride Carbon Dioxide Anion Gap BUN Creatinine Est GFR (CKD-EPI)AfAm Est GFR (CKD-EPI)NonAf POC Glucometer Random Glucose Hemoglobin A1c % Serum Osmolality Calcium Phosphorus Magnesium Total Bilirubin Direct Bilirubin GGT AST ALT Alkaline Phosphatase Creatine Kinase Total Protein Albumin Urine Color Urine Appearance Urine pH Ur Specific [place] Urine Protein Urine Glucose (UA) Urine Ketones Urine Blood Urine Nitrite Urine Bilirubin Urine Urobilinogen Ur Leukocyte Esterase Urine WBC (Auto) Urine RBC (Auto) Urine Casts (Auto) U Epithel Cells (Auto) Urine Bacteria (Auto) Urine Osmolality Ur Random Sodium Ur Random Potassium Ur Random Chloride Blood Type A POSITIVE Antibody Screen Negative 08/28/19 08/28/19 08/28/19 01:55 01:55 01:55 WBC RBC Hgb Hct MCV MCH MCHC RDW Plt Count MPV Absolute Neuts (auto) Neutrophils % Lymphocytes % Monocytes % Eosinophils % Basophils % Nucleated RBC % PT with INR INR PTT (Actin FS) Sodium Potassium Chloride Carbon Dioxide Anion Gap BUN Creatinine Est GFR (CKD-EPI)AfAm Est GFR (CKD-EPI)NonAf POC Glucometer Random Glucose Hemoglobin A1c % Serum Osmolality Calcium Phosphorus Magnesium Total Bilirubin Direct Bilirubin GGT AST ALT Alkaline Phosphatase Creatine Kinase Total Protein Albumin Urine Color Yellow Urine Appearance Clear Urine pH 5.0 Ur Specific [place] 1.023 Urine Protein 1+ H Urine Glucose (UA) Negative Urine Ketones Negative Urine Blood Negative Urine Nitrite Negative Urine Bilirubin Negative Urine Urobilinogen 0.2 Ur Leukocyte Esterase Negative Urine WBC (Auto) 0 Urine RBC (Auto) 1 Urine Casts (Auto) 0 U Epithel Cells (Auto) 0.2 Urine Bacteria (Auto) 5.3 Urine Osmolality 556 Ur Random Sodium 123 Ur Random Potassium 25.0 Ur Random Chloride 142 Blood Type Antibody Screen 08/28/19 08/28/19 08/28/19 05:19 05:19 05:19 WBC 4.4 RBC 3.81 L Hgb 11.1 L Hct 33.7 L MCV 88.3 MCH 29.2 MCHC 33.1 RDW 15.6 Plt Count 182 MPV 8.3 Absolute Neuts (auto) 3.0 Neutrophils % 68.4 Lymphocytes % 16.6 Monocytes % 13.6 H Eosinophils % 0.9 Basophils % 0.5 Nucleated RBC % 0 PT with INR 15.90 H INR 1.34 H PTT (Actin FS) 40.7 H Sodium 141 Potassium 4.6 Chloride 111 H Carbon Dioxide 23 Anion Gap 6 L BUN 25.7 H Creatinine 1.2 Est GFR (CKD-EPI)AfAm 63.97 Est GFR (CKD-EPI)NonAf 55.20 POC Glucometer Random Glucose 126 H Hemoglobin A1c % Serum Osmolality Calcium 8.9 Phosphorus 3.6 Magnesium 1.8 Total Bilirubin 1.2 H Direct Bilirubin 0.4 H GGT 131 H AST 22 ALT 20 Alkaline Phosphatase 219 H Creatine Kinase 68 Total Protein 6.6 Albumin 3.2 L Urine Color Urine Appearance Urine pH Ur Specific [place] Urine Protein Urine Glucose (UA) Urine Ketones Urine Blood Urine Nitrite Urine Bilirubin Urine Urobilinogen Ur Leukocyte Esterase Urine WBC (Auto) Urine RBC (Auto) Urine Casts (Auto) U Epithel Cells (Auto) Urine Bacteria (Auto) Urine Osmolality Ur Random Sodium Ur Random Potassium Ur Random Chloride Blood Type Antibody Screen 08/28/19 08/28/19 08/28/19 05:19 05:31 07:50 WBC RBC Hgb Hct MCV MCH MCHC RDW Plt Count MPV Absolute Neuts (auto) Neutrophils % Lymphocytes % Monocytes % Eosinophils % Basophils % Nucleated RBC % PT with INR INR PTT (Actin FS) Sodium Potassium Chloride Carbon Dioxide Anion Gap BUN Creatinine Est GFR (CKD-EPI)AfAm Est GFR (CKD-EPI)NonAf POC Glucometer 120 Random Glucose Hemoglobin A1c % 7.4 H Serum Osmolality Calcium Phosphorus Magnesium Total Bilirubin Direct Bilirubin GGT AST ALT Alkaline Phosphatase Creatine Kinase Total Protein Albumin Urine Color Urine Appearance Urine pH Ur Specific [place] Urine Protein Urine Glucose (UA) Urine Ketones Urine Blood Urine Nitrite Urine Bilirubin Urine Urobilinogen Ur Leukocyte Esterase Urine WBC (Auto) Urine RBC (Auto) Urine Casts (Auto) U Epithel Cells (Auto) Urine Bacteria (Auto) Urine Osmolality Ur Random Sodium Ur Random Potassium Ur Random Chloride Blood Type A POSITIVE Antibody Screen 08/28/19 08/28/19 08/28/19 07:50 11:30 17:57 WBC RBC Hgb Hct MCV MCH MCHC RDW Plt Count MPV Absolute Neuts (auto) Neutrophils % Lymphocytes % Monocytes % Eosinophils % Basophils % Nucleated RBC % PT with INR INR PTT (Actin FS) Sodium Potassium Chloride Carbon Dioxide Anion Gap BUN Creatinine Est GFR (CKD-EPI)AfAm Est GFR (CKD-EPI)NonAf POC Glucometer 112 203 Random Glucose Hemoglobin A1c % Serum Osmolality 301 Calcium Phosphorus Magnesium Total Bilirubin Direct Bilirubin GGT AST ALT Alkaline Phosphatase Creatine Kinase Total Protein Albumin Urine Color Urine Appearance Urine pH Ur Specific [place] Urine Protein Urine Glucose (UA) Urine Ketones Urine Blood Urine Nitrite Urine Bilirubin Urine Urobilinogen Ur Leukocyte Esterase Urine WBC (Auto) Urine RBC (Auto) Urine Casts (Auto) U Epithel Cells (Auto) Urine Bacteria (Auto) Urine Osmolality Ur Random Sodium Ur Random Potassium Ur Random Chloride Blood Type Antibody Screen Current Medications Generic Name Dose Route Start Last Admin Trade Name Freq PRN Reason Stop Dose Admin Furosemide 40 mg 08/28/19 10:00 08/28/19 11:34 Lasix Injection - IVPUSH 40 mg DAILY GLADIS Administration Insulin Aspart 1 vial 08/28/19 07:00 08/28/19 18:04 Novolog Vial Sliding Scale - SQ 2 unit ACHS GLADIS Administration Protocol Lisinopril 10 mg 08/29/19 10:00 Prinivil PO DAILY [facility] Home Medications Medication Instructions Recorded Apixaban [Eliquis] 5 mg PO BID 08/27/19 Lisinopril 10 mg PO DAILY 08/27/19 Sitagliptin Phos/Metformin HCl 1 each PO BID 08/27/19 [Janumet 50-500 mg Tablet] ASSESSMENT AND PLAN: 83 year old male with a past medical history of Atrial Fibrillation (on Eliquis) , HTN, CKD 3, DM 2, 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 No fever/chills. 1. Large Right sided pleural effusion CT Chest - Large right pleural effusion with atelectatic changes of the right middle and lower lobes; fluid is not consistent with a hemothorax. Mild to moderate chronic lung disease. Prominent mediastinal lymph nodes. Seen by Cardio/Pulmonary - recommend diagnostic and therapeutic Thoracentesis Echo requested. Eliquis held - thoracentesis scheduled for 09/01/19 Will attempt IV Lasix diuresis and assess response. Daily weight, I/Os, monitor renal function. 2. CKD 3 - Stable. Renal US - mild chronic bilateral hydronephrosis Urology follow up as out-patient. 3. Elevated Bili/Alk Phos RUQ US - requested No evidence of acute cholecystitis. Surgery referral as out-patient on discharge. 4. DM 2 - Janumet held. Maintain on Novolog sliding scale. 5. Atrial fibrillation - Eliquis held pending IR guided thoracentesis. 6. HTN - can resume Lisinopril. DVT Px - Eliquis held 08/28
[2019-08-29] MEDS: INSULIN SLIDING SCALE (NOVOLOG) 1 VIAL SQ SCH ×4 (06:32→21:54)
[2019-08-29] MEDS: LISINOPRIL 10 MG TABLET (FP) PO SCH (09:39)
[2019-08-29 10:40] LABS: HEMATOCRIT 36.6 % (35.4-49); HEMOGLOBIN 12.1 GM/dL (11.7-16.9); MCH 29.1 pg (25.7-33.7); MEAN CELL VOLUME 88.3 fl (80-96); MEAN PLT VOLUME 8.2 fl (7.5-11.1); PLATELET COUNT 216 K/MM3 (134-434); RBC 4.15 M/mm3 (4.00-5.60); RDW 15.8 % (11.9-15.9); WHITE BLOOD COUNT 4.8 K/mm3 (4.0-10.0)
[2019-08-29 11:35] LABS: INR 1.23 (0.83-1.09); PROTHROMBIN TIME (PATIENT) 14.6 SEC (9.7-13.0)
--- NOTE | 2019-08-29 12:11 | PN ---
Progress Note (short form) - Note Progress Note: s: no cp palps dizzy; sob better Current Medications Generic Name Dose Route Start Last Admin Trade Name Dorothy PRN Reason Stop Dose Admin Furosemide 40 mg 08/28/19 10:00 08/28/19 11:34 Lasix Injection - IVPUSH 40 mg DAILY GLADIS Administration Insulin Aspart 1 vial 08/28/19 07:00 08/29/19 11:34 Novolog Vial Sliding Scale - SQ Not Given ACHS GLADIS Protocol Lisinopril 10 mg 08/29/19 10:00 08/29/19 09:39 Prinivil PO 10 mg DAILY GLADIS Administration Vital Signs Period Temp Pulse Resp BP Sys/[place] Pulse Ox Last 24 Hr 97.4 F-98.4 F 68-84 18-18 103-133/56-72 97-99 nad no jvd irreg s1 s2 no mrg dec bs right, nl eff aao3 no le e/c/c abd nt nd pos bs no jaundice diaphoresis CBC, BMP 08/29/19 10:17 08/28/19 05:19 echo 08/2019: lvh, lvef 50, nl rv, lae, mild ms, mild mr, mod tr, rvsp 30-40, mild ar ecg: afib, rate 73, old irbbb cxr: large r eff mibi 07/2016: no ischemia a/p: 83 m hx dm, htn, pafib, cva here with sob. sob, right pleural eff: -etiology unclear, does not appear to be chf -cont iv lasix for now, daily chem7 -plan for thoracentesis -pulm following htn: -cont home afia pafib: -rate controlled w/o meds -eliquis held for now until thoracentesis
[2019-08-29 13:00] LABS: ALBUMIN 3.4 g/dl (3.4-5.0); BILIRUBIN,TOTAL 1.4 mg/dL (0.2-1); CREATININE 1.6 mg/dL (0.55-1.3); MAGNESIUM 1.8 mg/dL (1.8-2.4); POTASSIUM 4.3 mmol/L (3.5-5.1); TOT PROT 6.8 g/dl (6.4-8.2)
[2019-08-29] MEDS: FUROSEMIDE 40 MG/4 ML INJECTABLE VIAL IVPUSH SCH (13:11)
--- NOTE | 2019-08-29 13:36 | PN ---
Physical Exam: SUBJECTIVE: Patient seen and examined. States that he feels fine. Denies SOB, chest pain, abd pain, fever, chills, or other concerns. OBJECTIVE: Vital Signs Period Temp Pulse Resp BP Sys/Medina Pulse Ox Last 24 Hr 97.4 F-98.4 F 68-84 18-18 103-133/56-72 97-99 GENERAL: The patient is awake, alert, and fully oriented, in no acute distress. HEAD: Normal with no signs of trauma. EYES: EOMI, no ptosis ENT: MMM NECK: Trachea midline, full range of motion, supple. LUNGS: decreased breath sounds on right side, clear to auscultation on left, no accessory muscle use, no wheezing HEART: Regular rate and rhythm, S1, S2 without murmur, rub or gallop. ABDOMEN: Soft, nontender, nondistended, normoactive bowel sounds, no guarding EXTREMITIES: 2+ pulses, warm, well-perfused, no edema. NEUROLOGICAL: Normal speech, gait not observed. Sensation intact throughout PSYCH: appropriate mood and affect SKIN: Warm, dry, normal turgor, no rashes or lesions noted Laboratory Results - last 24 hr 08/28/19 08/28/19 08/28/19 05:19 17:57 22:14 WBC RBC Hgb Hct MCV MCH MCHC RDW Plt Count MPV PT with INR INR Sodium Potassium Chloride Carbon Dioxide Anion Gap BUN Creatinine Est GFR (CKD-EPI)AfAm Est GFR (CKD-EPI)NonAf POC Glucometer 203 113 Random Glucose Calcium Magnesium Total Bilirubin AST ALT Alkaline Phosphatase Total Protein Albumin PTH Intact 54 08/29/19 08/29/19 08/29/19 06:30 08:13 10:17 WBC 4.8 RBC 4.15 Hgb 12.1 Hct 36.6 MCV 88.3 MCH 29.1 MCHC 33.0 RDW 15.8 Plt Count 216 MPV 8.2 PT with INR INR Sodium 139 Potassium 4.3 Chloride 105 Carbon Dioxide 27 Anion Gap 7 L BUN 30.0 H Creatinine 1.6 H Est GFR (CKD-EPI)AfAm 45.18 Est GFR (CKD-EPI)NonAf 38.98 POC Glucometer 88 Random Glucose 152 H Calcium 9.0 Magnesium 1.8 Total Bilirubin 1.4 H AST 25 ALT 21 Alkaline Phosphatase 225 H Total Protein 6.8 Albumin 3.4 PTH Intact 08/29/19 08/29/19 10:17 11:30 WBC RBC Hgb Hct MCV MCH MCHC RDW Plt Count MPV PT with INR 14.60 H INR 1.23 H Sodium Potassium Chloride Carbon Dioxide Anion Gap BUN Creatinine Est GFR (CKD-EPI)AfAm Est GFR (CKD-EPI)NonAf POC Glucometer 164 Random Glucose Calcium Magnesium Total Bilirubin AST ALT Alkaline Phosphatase Total Protein Albumin PTH Intact Active Medications Generic Name Dose Route Start Last Admin Trade Name Dorothy PRN Reason Stop Dose Admin Furosemide 40 mg 08/28/19 10:00 08/29/19 13:11 Lasix Injection - IVPUSH 40 mg DAILY GLADIS Administration Insulin Aspart 1 vial 08/28/19 07:00 08/29/19 11:34 Novolog Vial Sliding Scale - SQ Not Given ACHS GLADIS Protocol Lisinopril 10 mg 08/29/19 10:00 08/29/19 09:39 Prinivil PO 10 mg DAILY GLADIS Administration ASSESSMENT/PLAN: Darian Ortiz is an 83 year old male with a past medical history of afib ( on Eliquis) HTN, Stage 3 CKD, DM, 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 Shortness of breath 2/2 R sided pleural effusion - CT shows large RT side d pleural effusion - doubt hemothorax is present given Hgb is stable and pt SOB from prior to fall and no signs of rib contusion on exam, and lack of pleuritic pain - hold Eliquis for thoracocentesis - will assess fluid for transudate vs exudate - Cardio does not believe it is due to CHF - Continue lasix - echo - borderline reduced EF (50%) with Mitral stenosis - IR consulted - Appreciate Dr. Khan recs stating its not a pneumothorax/hemothorax and plan is for for thoracic tap for fluid analysis - cardiology consulted recommending continuing to hold eliquis and AF is stable , continuing lasix CKD - likely in setting of HTN and DM - UA noting proteinuria - urine electrolytes, urine and serum osms, for measurment of TTKG - renal/bladder U/S showing b/l hydronephrosis and anuria - PTH normal - CPK within normal limits Elevated biluribin/alk Phos - T bili, direct bili slight elevation - RUQ U/S normal, normal cbd diameter for pts age. DM - BGM ACHS - ISS - A1c Afib - hold Eliquis for now in setting of possible thoracentesis with IR HTN - restarted on Lisinopril 10mg daily DVT PPx - SCDs until can resume chemical prophylaxis with home Eliquis FEN - no standing fluids, caution with fluids in setting of pleural effusion and questionable poor heart function - continue to monitor electrolytes and replete as necessary, hyperkalemia resolved - Sodium/Diabetic diet Disposition - patient awaiting thoracocentesis, continue to diurese with IV lasix Visit type - Emergency Visit Emergency Visit: Yes ED Registration Date: 08/27/19 Care time: The patient presented to the Emergency Department on the above date and was hospitalized for further evaluation of their emergent condition. - New Patient This patient is new to me today: Yes Date on this admission: 08/29/19 - Critical Care Critical Care patient: No ATTENDING PHYSICIAN STATEMENT I saw and evaluated the patient. I reviewed the resident's note and discussed the case with the resident. I agree with the resident's findings and plan as documented. SUBJECTIVE: OBJECTIVE: ASSESSMENT AND PLAN:
--- NOTE | 2019-08-29 14:57 | PN ---
Progress Note (short form) - Note Progress Note: PULMONARY States breathing is improving. No chest pain or cough. Vital Signs Period Temp Pulse Resp BP Sys/Medina Pulse Ox Last 24 Hr 98 F-98.4 F 68-84 18-18 103-133/56-72 97-99 Gen: NAD at rest Heart: RRR Lung: decreased breath sounds right base Abd: soft, nontender Ext: no edema CBC, BMP 08/29/19 10:17 08/29/19 08:13 Active Medications Furosemide (Lasix Injection -) 40 mg IVPUSH DAILY GLADIS Last Admin: 08/29/19 13:11 Dose: 40 mg Insulin Aspart (Novolog Vial Sliding Scale -) 1 vial SQ ACHS [facility]; Protocol Last Admin: 08/29/19 11:34 Dose: Not Given Lisinopril (Prinivil) 10 mg PO DAILY [facility] Last Admin: 08/29/19 09:39 Dose: 10 mg A/P Right Pleural Effusion Paroxysmal Atrial Fibrillation Acute vs Chronic Renal Failure HTN DM h/o CVA - continue lasix - monitor urine output, creatinine - rate controlled - holding anticoagulation for diagnostic thoracentesis
[2019-08-29 15:08] LABS: ANISOCYTOSIS 1+; MACROCYTOSIS 0; OVALOCYTE 1+; PLATELET ESTIMATE NORMAL
--- NOTE | 2019-08-29 16:25 | PN ---
Teaching Attending Note Name of Resident: Harry Valdivia ATTENDING PHYSICIAN STATEMENT I saw and evaluated the patient. I reviewed the resident's note and discussed the case with the resident. I agree with the resident's findings and plan as documented. SUBJECTIVE: Feels well - no complaints. No further SOB. No CP/palpitations OBJECTIVE: Afebrile, Hemodynamically Stable Last Vital Signs Temp Pulse Resp BP Pulse Ox 97.5 F L 76 18 110/49 L 99 on RA 08/29/19 14:00 08/29/19 14:00 08/29/19 14:00 08/29/19 14:00 08/29/19 09:00 HEENT - facial bruising forehead and trevon-orbital region. EOMI. Heart - S1, S2, RRR Lungs - Decreased air entry RLZ Abdomen - soft, non-tender. Bowel sounds normal Extremities - mild edema, chronic venous stasis, no calf tenderness. Neuro - AAO x 3. SELWYN. Tone/Power normal all extremities. Laboratory Results - last 24 hr 08/28/19 08/28/19 08/28/19 05:19 17:57 22:14 WBC RBC Hgb Hct MCV MCH MCHC RDW Plt Count MPV Neutrophils % (Manual) Band Neutrophils % Lymphocytes % (Manual) Monocytes % (Manual) Eosinophils % (Manual) Basophils % (Manual) Myelocytes % (Man) Promyelocytes % (Man) Blast Cells % (Manual) Nucleated RBC % Metamyelocytes Hypochromia Platelet Estimate Polychromasia Poikilocytosis Anisocytosis Microcytosis Macrocytosis Ovalocytes [place] Cells Schistocytes PT with INR INR Sodium Potassium Chloride Carbon Dioxide Anion Gap BUN Creatinine Est GFR (CKD-EPI)AfAm Est GFR (CKD-EPI)NonAf POC Glucometer 203 113 Random Glucose Calcium Magnesium Total Bilirubin AST ALT Alkaline Phosphatase Total Protein Albumin PTH Intact 54 08/29/19 08/29/19 08/29/19 06:30 08:13 10:17 WBC 4.8 RBC 4.15 Hgb 12.1 Hct 36.6 MCV 88.3 MCH 29.1 MCHC 33.0 RDW 15.8 Plt Count 216 MPV 8.2 Neutrophils % (Manual) 78.4 Band Neutrophils % 1.0 Lymphocytes % (Manual) 7.2 L Monocytes % (Manual) 8 Eosinophils % (Manual) 2.1 Basophils % (Manual) 0.0 Myelocytes % (Man) 0 Promyelocytes % (Man) 0 Blast Cells % (Manual) 0 Nucleated RBC % 0 Metamyelocytes 0 Hypochromia 0 Platelet Estimate Normal Polychromasia 1+ Poikilocytosis 2+ Anisocytosis 1+ Microcytosis 1+ Macrocytosis 0 Ovalocytes 1+ [place]ako Cells 1+ Schistocytes 1+ PT with INR INR Sodium 139 Potassium 4.3 Chloride 105 Carbon Dioxide 27 Anion Gap 7 L BUN 30.0 H Creatinine 1.6 H Est GFR (CKD-EPI)AfAm 45.18 Est GFR (CKD-EPI)NonAf 38.98 POC Glucometer 88 Random Glucose 152 H Calcium 9.0 Magnesium 1.8 Total Bilirubin 1.4 H AST 25 ALT 21 Alkaline Phosphatase 225 H Total Protein 6.8 Albumin 3.4 PTH Intact 08/29/19 08/29/19 10:17 11:30 WBC RBC Hgb Hct MCV MCH MCHC RDW Plt Count MPV Neutrophils % (Manual) Band Neutrophils % Lymphocytes % (Manual) Monocytes % (Manual) Eosinophils % (Manual) Basophils % (Manual) Myelocytes % (Man) Promyelocytes % (Man) Blast Cells % (Manual) Nucleated RBC % Metamyelocytes Hypochromia Platelet Estimate Polychromasia Poikilocytosis Anisocytosis Microcytosis Macrocytosis Ovalocytes [place] Cells Schistocytes PT with INR 14.60 H INR 1.23 H Sodium Potassium Chloride Carbon Dioxide Anion Gap BUN Creatinine Est GFR (CKD-EPI)AfAm Est GFR (CKD-EPI)NonAf POC Glucometer 164 Random Glucose Calcium Magnesium Total Bilirubin AST ALT Alkaline Phosphatase Total Protein Albumin PTH Intact Current Medications Generic Name Dose Route Start Last Admin Trade Name Dorothy PRN Reason Stop Dose Admin Furosemide 40 mg 08/28/19 10:00 08/29/19 13:11 Lasix Injection - IVPUSH 40 mg DAILY GLADIS Administration Insulin Aspart 1 vial 08/28/19 07:00 08/29/19 11:34 Novolog Vial Sliding Scale - SQ Not Given ACHS GLADIS Protocol Lisinopril 10 mg 08/29/19 10:00 08/29/19 09:39 Prinivil PO 10 mg DAILY GLADIS Administration Home Medications Medication Instructions Recorded Apixaban [Eliquis] 5 mg PO BID 08/27/19 Lisinopril 10 mg PO DAILY 08/27/19 Sitagliptin Phos/Metformin HCl 1 each PO BID 08/27/19 [Janumet 50-500 mg Tablet] ASSESSMENT AND PLAN: 83 year old male with a past medical history of Atrial Fibrillation (on Eliquis) , HTN, CKD 3, DM 2, 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 No fever/chills. 1. Large Right sided pleural effusion CT Chest - Large right pleural effusion with atelectatic changes of the right middle and lower lobes; fluid is not consistent with a hemothorax. Mild to moderate chronic lung disease. Prominent mediastinal lymph nodes. Seen by Cardio/Pulmonary - recommend diagnostic and therapeutic Thoracentesis Echo - EF 50%, LVH, Mod TR. Eliquis held - thoracentesis scheduled for 09/01/19 IV Lasix diuresis ongoing - for repeat CXR in AM. Creatinine rising - will monitor. Will hold further pending Creat level in AM. Daily weight, I/Os, monitor renal function. 2. CKD 3 - Stable. Renal US - mild chronic bilateral hydronephrosis Urology follow up as out-patient. 3. Elevated Bili/Alk Phos RUQ US - requested No evidence of acute cholecystitis. Surgery referral as out-patient on discharge. 4. DM 2 - A1C 7.4. Janumet held. Maintain on Novolog sliding scale. 5. Atrial fibrillation - Eliquis held pending IR guided thoracentesis. Will cover with Lovenox SQ. 6. HTN - continue Lisinopril. If any further increase in Creat, will hold. DVT Px - Eliquis held 08/28, Lovenox coverage.
[2019-08-29] MEDS: ENOXAPARIN NA (PORCINE) 80 MG/0.8 ML DISP.SYRIN SQ SCH (21:55)
[2019-08-30] MEDS: INSULIN SLIDING SCALE (NOVOLOG) 1 VIAL SQ SCH ×4 (06:37→22:00)
[2019-08-30] MEDS: ENOXAPARIN NA (PORCINE) 80 MG/0.8 ML DISP.SYRIN SQ SCH ×2 (10:25→22:00)
[2019-08-30] MEDS: LISINOPRIL 10 MG TABLET (FP) PO SCH (10:25)
--- NOTE | 2019-08-30 10:35 | PN ---
Progress Note (short form) - Note Progress Note: s: no cp palps dizzy; sob better Current Medications Generic Name Dose Route Start Last Admin Trade Name Dorothy PRN Reason Stop Dose Admin Enoxaparin Sodium 75 mg 08/29/19 22:00 08/30/19 10:25 Lovenox - SQ 75 mg BID GLADIS Administration Furosemide 40 mg 08/28/19 10:00 08/29/19 13:11 Lasix Injection - IVPUSH 40 mg DAILY GLADIS Administration Insulin Aspart 1 vial 08/28/19 07:00 08/30/19 06:37 Novolog Vial Sliding Scale - SQ Not Given ACHS GLADIS Protocol Lisinopril 10 mg 08/29/19 10:00 08/30/19 10:25 Prinivil PO 10 mg DAILY GLADIS Administration Vital Signs Period Temp Pulse Resp BP Sys/Medina Pulse Ox Last 24 Hr 97.4 F-97.9 F 61-76 - 102-120/49-79 99 nad no jvd irreg s1 s2 no mrg dec bs right, nl eff aao3 no le e/c/c abd nt nd pos bs no jaundice diaphoresis CBC, BMP 08/29/19 10:17 08/29/19 08:13 echo 08/2019: lvh, lvef 50, nl rv, lae, mild ms, mild mr, mod tr, rvsp 30-40, mild ar ecg: afib, rate 73, old irbbb cxr: large r eff mibi 07/2016: no ischemia a/p: 83 m hx dm, htn, pafib, cva here with sob. sob, right pleural eff: -etiology unclear, does not appear to be chf -cont iv lasix for now, daily chem7 -planned for thoracentesis -pulm following htn: -cont home afia pafib: -rate controlled w/o meds -eliquis held for now until thoracentesis, on lovenox
--- NOTE | 2019-08-30 13:27 | PN ---
Progress Note (short form) - Note Progress Note: PULMONARY States breathing is improving. No chest pain or cough. Vital Signs Period Temp Pulse Resp BP Sys/Medina Pulse Ox Last 24 Hr 97.4 F-98.1 F 61-93 18-18 102-120/44-79 94-99 Gen: NAD at rest Heart: RRR Lung: decreased breath sounds right base Abd: soft, nontender Ext: no edema CBC, BMP 08/29/19 10:17 Active Medications Enoxaparin Sodium (Lovenox -) 75 mg SQ BID [facility] Last Admin: 08/30/19 10:25 Dose: 75 mg Furosemide (Lasix Injection -) 40 mg IVPUSH DAILY [facility] Last Admin: 08/29/19 13:11 Dose: 40 mg Insulin Aspart (Novolog Vial Sliding Scale -) 1 vial SQ ACHS [facility]; Protocol Last Admin: 08/30/19 12:20 Dose: 2 unit Lisinopril (Prinivil) 10 mg PO DAILY [facility] Last Admin: 08/30/19 10:25 Dose: 10 mg A/P Right Pleural Effusion Paroxysmal Atrial Fibrillation Acute vs Chronic Renal Failure HTN DM h/o CVA - continue lasix - monitor urine output, creatinine - rate controlled - holding anticoagulation for diagnostic thoracentesis
[2019-08-30 13:49] LABS: BLOOD UREA NITROGEN 30.8 mg/dL (7-18); CREATININE 1.5 mg/dL (0.55-1.3); POTASSIUM 4.1 mmol/L (3.5-5.1)
--- NOTE | 2019-08-30 14:41 | PN ---
Progress Note (short form) - Note Progress Note: SUBJECTIVE: Feels well - no complaints. Ambulating well with no further SOB. No CP/palpitations OBJECTIVE: Afebrile, Hemodynamically Stable Last Vital Signs Temp Pulse Resp BP Pulse Ox 98.1 F 93 H 18 113/44 L 94 L 08/30/19 10:00 08/30/19 10:00 08/30/19 10:00 08/30/19 10:00 08/30/19 09:00 HEENT - facial bruising forehead and trevon-orbital region. EOMI. Heart - S1, S2, RRR Lungs - Decreased air entry RLZ Abdomen - soft, non-tender. Bowel sounds normal Extremities - mild edema, chronic venous stasis, no calf tenderness. Neuro - AAO x 3. SELWYN. Tone/Power normal all extremities. Laboratory Results - last 24 hr 08/29/19 08/29/19 08/29/19 10:17 17:45 20:58 Neutrophils % (Manual) 78.4 Band Neutrophils % 1.0 Lymphocytes % (Manual) 7.2 L Monocytes % (Manual) 8 Eosinophils % (Manual) 2.1 Basophils % (Manual) 0.0 Myelocytes % (Man) 0 Promyelocytes % (Man) 0 Blast Cells % (Manual) 0 Nucleated RBC % 0 Metamyelocytes 0 Hypochromia 0 Platelet Estimate Normal Polychromasia 1+ Poikilocytosis 2+ Anisocytosis 1+ Microcytosis 1+ Macrocytosis 0 Ovalocytes 1+ [place] Cells 1+ Schistocytes 1+ Sodium Potassium Chloride Carbon Dioxide Anion Gap BUN Creatinine Est GFR (CKD-EPI)AfAm Est GFR (CKD-EPI)NonAf POC Glucometer 118 183 Random Glucose Calcium 08/30/19 08/30/19 08/30/19 06:08 10:33 12:30 Neutrophils % (Manual) Band Neutrophils % Lymphocytes % (Manual) Monocytes % (Manual) Eosinophils % (Manual) Basophils % (Manual) Myelocytes % (Man) Promyelocytes % (Man) Blast Cells % (Manual) Nucleated RBC % Metamyelocytes Hypochromia Platelet Estimate Polychromasia Poikilocytosis Anisocytosis Microcytosis Macrocytosis Ovalocytes [place] Cells Schistocytes Sodium 139 Potassium 4.1 Chloride 102 Carbon Dioxide 30 Anion Gap 7 L BUN 30.8 H Creatinine 1.5 H Est GFR (CKD-EPI)AfAm 48.85 Est GFR (CKD-EPI)NonAf 42.14 POC Glucometer 105 203 Random Glucose 196 H Calcium 9.0 Current Medications Generic Name Dose Route Start Last Admin Trade Name Dorothy PRN Reason Stop Dose Admin Enoxaparin Sodium 75 mg 08/29/19 22:00 08/30/19 10:25 Lovenox - SQ 75 mg BID GLADIS Administration Furosemide 40 mg 08/28/19 10:00 08/29/19 13:11 Lasix Injection - IVPUSH 40 mg DAILY GLADIS Administration Insulin Aspart 1 vial 08/28/19 07:00 08/30/19 12:20 Novolog Vial Sliding Scale - SQ 2 unit ACHS GLADIS Administration Protocol Lisinopril 10 mg 08/29/19 10:00 08/30/19 10:25 Prinivil PO 10 mg DAILY GLADIS Administration Home Medications Medication Instructions Recorded Apixaban [Eliquis] 5 mg PO BID 08/27/19 Lisinopril 10 mg PO DAILY 08/27/19 Sitagliptin Phos/Metformin HCl 1 each PO BID 08/27/19 [Janumet 50-500 mg Tablet] ASSESSMENT AND PLAN: 83 year old male with a past medical history of Atrial Fibrillation (on Eliquis) , HTN, CKD 3, DM 2, 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 No fever/chills. 1. Large Right sided pleural effusion CT Chest - Large right pleural effusion with atelectatic changes of the right middle and lower lobes; fluid is not consistent with a hemothorax. Mild to moderate chronic lung disease. Prominent mediastinal lymph nodes. Seen by Cardio/Pulmonary - recommend diagnostic and therapeutic Thoracentesis Echo - EF 50%, LVH, Mod TR. Eliquis held - thoracentesis scheduled for 09/01/19 IV Lasix diuresis ongoing - awaiting repeat CXR. Creatinine slightly elevated - will monitor. Daily weight, I/Os, monitor renal function. 2. CKD 3 - mild bump in Creat - will monitor. Renal US - mild chronic bilateral hydronephrosis Urology follow up as out-patient. 3. Elevated Bili/Alk Phos RUQ US - Gallstones. No evidence of acute cholecystitis. Surgery referral as out-patient on discharge. 4. DM 2 - A1C 7.4. Janumet held. Maintain on Novolog sliding scale. 5. Atrial fibrillation - Eliquis held pending IR guided thoracentesis. Will cover with Lovenox SQ. 6. HTN - continue Lisinopril. If any further increase in Creat, will hold. DVT Px - Eliquis held 08/28, Lovenox coverage. Visit type - Emergency Visit Emergency Visit: Yes ED Registration Date: 08/27/19 Care time: The patient presented to the Emergency Department on the above date and was hospitalized for further evaluation of their emergent condition. - New Patient This patient is new to me today: No - Critical Care Critical Care patient: No - Discharge Referral Referred to [facility] Med P.C.: No
[2019-08-31] MEDS: INSULIN SLIDING SCALE (NOVOLOG) 1 VIAL SQ SCH ×4 (06:21→21:42)
[2019-08-31] MEDS: ENOXAPARIN NA (PORCINE) 80 MG/0.8 ML DISP.SYRIN SQ SCH (10:27)
[2019-08-31] MEDS: LISINOPRIL 10 MG TABLET (FP) PO SCH (10:28)
[2019-08-31] MEDS: FUROSEMIDE 40 MG/4 ML INJECTABLE VIAL IVPUSH SCH (10:28)
--- NOTE | 2019-08-31 11:00 | PN ---
Progress Note (short form) - Note Progress Note: s: no cp palps dizzy; sob better Current Medications Generic Name Dose Route Start Last Admin Trade Name Dorothy PRN Reason Stop Dose Admin Furosemide 20 mg 08/31/19 10:00 08/31/19 10:28 Lasix Injection - IVPUSH 20 mg DAILY GLADIS Administration Insulin Aspart 1 vial 08/28/19 07:00 08/31/19 06:21 Novolog Vial Sliding Scale - SQ Not Given ACHS GLADIS Protocol Lisinopril 10 mg 08/29/19 10:00 08/31/19 10:28 Prinivil PO 10 mg DAILY GLADIS Administration Vital Signs Period Temp Pulse Resp BP Sys/Medina Pulse Ox Last 24 Hr 97.7 F-98.2 F 59-81 18-20 95-146/47-70 94 nad no jvd irreg s1 s2 no mrg dec bs right, nl eff aao3 no le e/c/c abd nt nd pos bs no jaundice diaphoresis CBC, BMP 08/29/19 10:17 08/30/19 12:30 echo 08/2019: lvh, lvef 50, nl rv, lae, mild ms, mild mr, mod tr, rvsp 30-40, mild ar ecg: afib, rate 73, old irbbb cxr: large r eff mibi 07/2016: no ischemia a/p: 83 m hx dm, htn, pafib, cva here with sob. sob, right pleural eff: -etiology unclear, does not appear to be chf -cont iv lasix for now, daily chem7 -planned for thoracentesis -pulm following htn: -cont home afia pafib: -rate controlled w/o meds -eliquis held for now until thoracentesis, on lovenox
--- NOTE | 2019-08-31 11:10 | PN ---
Physical Exam: SUBJECTIVE: Patient seen and examined at bedside. No acute events overnight. OBJECTIVE: Vital Signs Period Temp Pulse Resp BP Sys/Medina Pulse Ox Last 24 Hr 97.7 F-98.2 F 59-81 18-20 95-146/47-70 94 GENERAL: The patient is awake, alert, and fully oriented, in no acute distress. NECK: Trachea midline, full range of motion, supple. LUNGS: decreased tactile fremitus in RLL and decreased bs in RLL. HEART: Regular rate and rhythm, S1, S2 without murmur, rub or gallop. ABDOMEN: Soft, nontender, nondistended, normoactive bowel sounds EXTREMITIES: 2+ pulses, warm, well-perfused, no edema. SKIN: bruising on face Laboratory Results - last 24 hr 08/30/19 08/30/19 08/30/19 12:30 17:25 21:21 Sodium 139 Potassium 4.1 Chloride 102 Carbon Dioxide 30 Anion Gap 7 L BUN 30.8 H Creatinine 1.5 H Est GFR (CKD-EPI)AfAm 48.85 Est GFR (CKD-EPI)NonAf 42.14 POC Glucometer 169 206 Random Glucose 196 H Calcium 9.0 08/31/19 06:14 Sodium Potassium Chloride Carbon Dioxide Anion Gap BUN Creatinine Est GFR (CKD-EPI)AfAm Est GFR (CKD-EPI)NonAf POC Glucometer 79 Random Glucose Calcium Active Medications Generic Name Dose Route Start Last Admin Trade Name Freq PRN Reason Stop Dose Admin Furosemide 20 mg 08/31/19 10:00 08/31/19 10:28 Lasix Injection - IVPUSH 20 mg DAILY GLADIS Administration Insulin Aspart 1 vial 08/28/19 07:00 08/31/19 06:21 Novolog Vial Sliding Scale - SQ Not Given ACHS [facility] Protocol Lisinopril 10 mg 08/29/19 10:00 08/31/19 10:28 Prinivil PO 10 mg DAILY GLADIS Administration ASSESSMENT/PLAN: Darian Ortiz is an 83 year old male with a past medical history of afib ( on Eliquis) HTN, Stage 3 CKD, DM, 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 Shortness of breath 2/2 R sided pleural effusion - CT shows large RT side d pleural effusion - hold Eliquis PM and AM dose for thoracocentesis tomorrow - will assess fluid for transudate vs exudate. - Could be 2/2 CHF given echo findings showing reduced EF, valvular disease vs possible malignancy given pt's age and smoking history. - will continue lasix 20IVP, plan to d/c if pt's Cr worsens. - echo- borderline reduced EF (50%) with Mitral stenosis. - IR consulted for thoracentesis - Appreciate Dr. Khan recs stating its not a pneumothorax/hemothorax and plan is for for thoracic tap for fluid analysis. - cardiology consulted recommending continuing to hold eliquis and AF is stable , continuing lasix. CKD - likely in setting of HTN and DM - UA noting proteinuria - urine electrolytes, urine and serum osms, for measurment of TTKG - renal/bladder U/S showing b/l hydronephrosis and anuria. - CPK, PTH levels Elevated biluribin/alk Phos - T bili, direct bili slight elevation - RUQ U/S normal, normal cbd diameter for pts age. DM - BGM ACHS - ISS - A1c Afib - hold Eliquis for now in setting of possible thoracentesis with IR HTN - resume home meds when confirmed with pharmacy DVT PPx - SCDs until can resume chemical prophylaxis with home Eliquis FEN - no standing fluids, caution with fluids in setting of pleural effusion and questionable poor heart function - continue to monitor electrolytes and replete as necessary, hyperkalemia resolved Visit type - Emergency Visit Emergency Visit: Yes ED Registration Date: 08/27/19 Care time: The patient presented to the Emergency Department on the above date and was hospitalized for further evaluation of their emergent condition. - New Patient This patient is new to me today: No - Critical Care Critical Care patient: No - Discharge Referral Referred to [facility] Med P.C.: No ATTENDING PHYSICIAN STATEMENT I saw and evaluated the patient. I reviewed the resident's note and discussed the case with the resident. I agree with the resident's findings and plan as documented. SUBJECTIVE: OBJECTIVE: ASSESSMENT AND PLAN:
--- NOTE | 2019-08-31 11:44 | PN ---
Progress Note (short form) - Note Progress Note: Breathing is improving. Ambulating in room with his walker. No chest pain or cough. Intake & Output 08/28/19 08/29/19 08/30/19 08/31/19 23:59 23:59 23:59 23:59 Intake Total 0 1100 600 Output Total 1400 200 Balance -1400 1100 400 Weight 173 lb 8 oz Last Vital Signs Temp Pulse Resp BP Pulse Ox 97.6 F 82 20 120/64 94 L 08/31/19 11:00 08/31/19 11:00 08/31/19 11:00 08/31/19 11:00 08/30/19 21:00 Active Medications Furosemide (Lasix Injection -) 20 mg IVPUSH DAILY [facility] Last Admin: 08/31/19 10:28 Dose: 20 mg Insulin Aspart (Novolog Vial Sliding Scale -) 1 vial SQ ACHS [facility]; Protocol Last Admin: 08/31/19 11:23 Dose: 2 unit Lisinopril (Prinivil) 10 mg PO DAILY [facility] Last Admin: 08/31/19 10:28 Dose: 10 mg Gen: NAD at rest Heart: RRR Lung: decreased breath sounds right base Abd: soft, nontender Ext: no edema Laboratory Results - last 24 hr 08/30/19 08/30/19 08/30/19 12:30 17:25 21:21 Sodium 139 Potassium 4.1 Chloride 102 Carbon Dioxide 30 Anion Gap 7 L BUN 30.8 H Creatinine 1.5 H Est GFR (CKD-EPI)AfAm 48.85 Est GFR (CKD-EPI)NonAf 42.14 POC Glucometer 169 206 Random Glucose 196 H Calcium 9.0 08/31/19 08/31/19 06:14 11:22 Sodium Potassium Chloride Carbon Dioxide Anion Gap BUN Creatinine Est GFR (CKD-EPI)AfAm Est GFR (CKD-EPI)NonAf POC Glucometer 79 230 Random Glucose Calcium A/P Right Pleural Effusion Paroxysmal Atrial Fibrillation Acute vs Chronic Renal Failure HTN DM h/o CVA - continue lasix - monitor urine output, creatinine - rate controlled - holding anticoagulation for diagnostic thoracentesis Dr Cardenas
--- NOTE | 2019-08-31 12:13 | PN ---
Teaching Attending Note Name of Resident: Louis Manning ATTENDING PHYSICIAN STATEMENT I saw and evaluated the patient. I reviewed the resident's note and discussed the case with the resident. I agree with the resident's findings and plan as documented. SUBJECTIVE: Feels well - no complaints. Ambulating well with no further SOB. No CP/palpitations OBJECTIVE: Afebrile, Hemodynamically Stable Last Vital Signs Temp Pulse Resp BP Pulse Ox 97.6 F 82 20 120/64 95 08/31/19 11:00 08/31/19 11:00 08/31/19 11:08/31/19 11:08/31/19 09:00 HEENT - facial bruising forehead and trevon-orbital region. EOMI. Heart - S1, S2, RRR Lungs - Decreased air entry PILI/RLZ Abdomen - soft, non-tender. Bowel sounds normal Extremities - mild edema, chronic venous stasis, no calf tenderness. Neuro - AAO x 3. SELWYN. Tone/Power normal all extremities. Laboratory Results - last 24 hr 08/30/19 08/30/19 08/30/19 12:30 17:25 21:21 Sodium 139 Potassium 4.1 Chloride 102 Carbon Dioxide 30 Anion Gap 7 L BUN 30.8 H Creatinine 1.5 H Est GFR (CKD-EPI)AfAm 48.85 Est GFR (CKD-EPI)NonAf 42.14 POC Glucometer 169 206 Random Glucose 196 H Calcium 9.0 08/31/19 08/31/19 06:14 11:22 Sodium Potassium Chloride Carbon Dioxide Anion Gap BUN Creatinine Est GFR (CKD-EPI)AfAm Est GFR (CKD-EPI)NonAf POC Glucometer 79 230 Random Glucose Calcium Current Medications Generic Name Dose Route Start Last Admin Trade Name Freq PRN Reason Stop Dose Admin Furosemide 20 mg 08/31/19 10:00 08/31/19 10:28 Lasix Injection - IVPUSH 20 mg DAILY [facility] Administration Insulin Aspart 1 vial 08/28/19 07:00 08/31/19 11:23 Novolog Vial Sliding Scale - SQ 2 unit ACHS [facility] Administration Protocol Lisinopril 10 mg 08/29/19 10:00 08/31/19 10:28 Prinivil PO 10 mg DAILY [facility] Administration Home Medications Medication Instructions Recorded Apixaban [Eliquis] 5 mg PO BID 08/27/19 Lisinopril 10 mg PO DAILY 08/27/19 Sitagliptin Phos/Metformin HCl 1 each PO BID 08/27/19 [Janumet 50-500 mg Tablet] ASSESSMENT AND PLAN: 83 year old male with a past medical history of Atrial Fibrillation (on Eliquis) , HTN, CKD 3, DM 2, 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 No fever/chills. 1. Large Right sided pleural effusion CT Chest - Large right pleural effusion with atelectatic changes of the right middle and lower lobes; fluid is not consistent with a hemothorax. Mild to moderate chronic lung disease. Prominent mediastinal lymph nodes. Seen by Cardio/Pulmonary - recommend diagnostic and therapeutic Thoracentesis Echo - EF 50%, LVH, Mod TR. Eliquis held - thoracentesis scheduled for 09/01/19 IV Lasix diuresis ongoing - repeat CXR shows persisting/worsening R pleural effusion. Creatinine slightly elevated - will monitor. IV Lasix dose reduced. Awaiting labs/renal function check today. Daily weight, I/Os, continue to monitor renal function. 2. CKD 3 - mild bump in Creat - will monitor. Renal US - mild chronic bilateral hydronephrosis Urology follow up as out-patient. 3. Elevated Bili/Alk Phos RUQ US - Gallstones. No evidence of acute cholecystitis. Will monitor. Surgery referral as out-patient on discharge. 4. DM 2 - A1C 7.4. Janumet held. Maintain on Novolog sliding scale. 5. Atrial fibrillation - Eliquis held pending IR guided thoracentesis. Covered with Lovenox SQ pending thoracentesis in AM. 6. HTN - continue Lisinopril. If any further increase in Creat, will hold. DVT Px - Eliquis held 08/28, Lovenox coverage (will also hold prior to procedure 09/01).
[2019-08-31 13:09] LABS: BLOOD UREA NITROGEN 28.2 mg/dL (7-18); CALCIUM 8.8 mg/dL (8.5-10.1); CREATININE 1.5 mg/dL (0.55-1.3); POTASSIUM 4.1 mmol/L (3.5-5.1)
[2019-09-01] MEDS: INSULIN SLIDING SCALE (NOVOLOG) 1 VIAL SQ SCH ×4 (06:00→21:52)
[2019-09-01 09:25] LABS: BASO % 0.4 % (0-2.0); EOS % 3.6 % (0-4.5); HEMATOCRIT 35.4 % (35.4-49); HEMOGLOBIN 12.1 GM/dL (11.7-16.9); LYMPH % 16.1 % (8-40); MCH 30.1 pg (25.7-33.7); MCHC 34.1 g/dl (32.0-35.9); MEAN CELL VOLUME 88.1 fl (80-96); MEAN PLT VOLUME 8.7 fl (7.5-11.1); MONO % 15.8 % (3.8-10.2); NEUT % 64.1 % (42.8-82.8); PLATELET COUNT 198 K/MM3 (134-434); RBC 4.01 M/mm3 (4.00-5.60); WHITE BLOOD COUNT 4.3 K/mm3 (4.0-10.0)
[2019-09-01 09:54] LABS: ALBUMIN 3.1 g/dl (3.4-5.0); BILIRUBIN,TOTAL 1.1 mg/dL (0.2-1); BLOOD UREA NITROGEN 25.8 mg/dL (7-18); CALCIUM 8.9 mg/dL (8.5-10.1); CREATININE 1.3 mg/dL (0.55-1.3); POTASSIUM 4.9 mmol/L (3.5-5.1); TOT PROT 6.4 g/dl (6.4-8.2)
--- NOTE | 2019-09-01 10:40 | PN ---
Progress Note (short form) - Note Progress Note: Breathing is improving. On the stretcher getting ready for thoracentesis. No chest pain or cough. Intake & Output 08/29/19 08/30/19 08/31/19 09/01/19 23:59 23:59 23:59 23:59 Intake Total 1100 600 450 Output Total 200 200 Balance 1100 400 450 -200 Last Vital Signs Temp Pulse Resp BP Pulse Ox 97.7 F 64 20 125/51 L 94 L 09/01/19 06:00 09/01/19 06:00 09/01/19 06:00 09/01/19 06:00 08/31/19 21:00 Active Medications Furosemide (Lasix Injection -) 20 mg IVPUSH DAILY [facility] Last Admin: 08/31/19 10:28 Dose: 20 mg Insulin Aspart (Novolog Vial Sliding Scale -) 1 vial SQ ACHS [facility]; Protocol Last Admin: 09/01/19 06:00 Dose: Not Given Lisinopril (Prinivil) 10 mg PO DAILY [facility] Last Admin: 08/31/19 10:28 Dose: 10 mg Gen: NAD at rest Heart: RRR Lung: decreased breath sounds right base Abd: soft, nontender Ext: no edema Laboratory Results - last 24 hr 08/31/19 08/31/19 08/31/19 11:22 11:55 16:46 WBC RBC Hgb Hct MCV MCH MCHC RDW Plt Count MPV Absolute Neuts (auto) Neutrophils % Lymphocytes % Monocytes % Eosinophils % Basophils % Nucleated RBC % Sodium 138 Potassium 4.1 Chloride 101 Carbon Dioxide 31 Anion Gap 6 L BUN 28.2 H Creatinine 1.5 H Est GFR (CKD-EPI)AfAm 48.85 Est GFR (CKD-EPI)NonAf 42.14 POC Glucometer 230 141 Random Glucose 224 H Calcium 8.8 Total Bilirubin AST ALT Alkaline Phosphatase Total Protein Albumin 08/31/19 09/01/19 09/01/19 21:40 05:41 08:25 WBC 4.3 RBC 4.01 Hgb 12.1 Hct 35.4 MCV 88.1 MCH 30.1 MCHC 34.1 RDW 15.0 Plt Count 198 MPV 8.7 Absolute Neuts (auto) 2.7 Neutrophils % 64.1 Lymphocytes % 16.1 Monocytes % 15.8 H Eosinophils % 3.6 D Basophils % 0.4 Nucleated RBC % 0 Sodium Potassium Chloride Carbon Dioxide Anion Gap BUN Creatinine Est GFR (CKD-EPI)AfAm Est GFR (CKD-EPI)NonAf POC Glucometer 196 98 Random Glucose Calcium Total Bilirubin AST ALT Alkaline Phosphatase Total Protein Albumin 09/01/19 08:25 WBC RBC Hgb Hct MCV MCH MCHC RDW Plt Count MPV Absolute Neuts (auto) Neutrophils % Lymphocytes % Monocytes % Eosinophils % Basophils % Nucleated RBC % Sodium 139 Potassium 4.9 Chloride 105 Carbon Dioxide 31 Anion Gap 3 L BUN 25.8 H Creatinine 1.3 Est GFR (CKD-EPI)AfAm 58.07 Est GFR (CKD-EPI)NonAf 50.10 POC Glucometer Random Glucose 116 H Calcium 8.9 Total Bilirubin 1.1 H AST 31 ALT 22 Alkaline Phosphatase 233 H Total Protein 6.4 Albumin 3.1 L A/P Right Pleural Effusion Paroxysmal Atrial Fibrillation Acute vs Chronic Renal Failure HTN DM h/o CVA - Lasix - monitor urine output, creatinine - rate controlled - holding anticoagulation for diagnostic thoracentesis Dr Cardenas
--- NOTE | 2019-09-01 12:01 | PN ---
Physical Exam: SUBJECTIVE: Patient seen and examined today at bedside. Pt denies any complaints other than wanting to go home. Pt will undergo thoracentesis today and will determine our management after. OBJECTIVE: Vital Signs Period Temp Pulse Resp BP Sys/[place] Pulse Ox Last 24 Hr 97.5 F-97.8 F 64-75 20-20 117-130/51-68 94 GENERAL: The patient is awake, alert, and fully oriented, in no acute distress. NECK: Trachea midline, full range of motion, supple. LUNGS: decreased tactile fremitus in RLL and decreased bs in RLL. HEART: Regular rate and rhythm, S1, S2 without murmur, rub or gallop. ABDOMEN: Soft, nontender, nondistended, normoactive bowel sounds EXTREMITIES: 2+ pulses, warm, well-perfused, no edema. SKIN: bruising on face Laboratory Results - last 24 hr 08/31/19 08/31/19 08/31/19 11:55 16:46 21:40 WBC RBC Hgb Hct MCV MCH MCHC RDW Plt Count MPV Absolute Neuts (auto) Neutrophils % Lymphocytes % Monocytes % Eosinophils % Basophils % Nucleated RBC % Sodium 138 Potassium 4.1 Chloride 101 Carbon Dioxide 31 Anion Gap 6 L BUN 28.2 H Creatinine 1.5 H Est GFR (CKD-EPI)AfAm 48.85 Est GFR (CKD-EPI)NonAf 42.14 POC Glucometer 141 196 Random Glucose 224 H Calcium 8.8 Total Bilirubin AST ALT Alkaline Phosphatase Total Protein Albumin 09/01/19 09/01/19 09/01/19 05:41 08:25 08:25 WBC 4.3 RBC 4.01 Hgb 12.1 Hct 35.4 MCV 88.1 MCH 30.1 MCHC 34.1 RDW 15.0 Plt Count 198 MPV 8.7 Absolute Neuts (auto) 2.7 Neutrophils % 64.1 Lymphocytes % 16.1 Monocytes % 15.8 H Eosinophils % 3.6 D Basophils % 0.4 Nucleated RBC % 0 Sodium 139 Potassium 4.9 Chloride 105 Carbon Dioxide 31 Anion Gap 3 L BUN 25.8 H Creatinine 1.3 Est GFR (CKD-EPI)AfAm 58.07 Est GFR (CKD-EPI)NonAf 50.10 POC Glucometer 98 Random Glucose 116 H Calcium 8.9 Total Bilirubin 1.1 H AST 31 ALT 22 Alkaline Phosphatase 233 H Total Protein 6.4 Albumin 3.1 L Active Medications Generic Name Dose Route Start Last Admin Trade Name Dorothy PRN Reason Stop Dose Admin Furosemide 20 mg 08/31/19 10:00 08/31/19 10:28 Lasix Injection - IVPUSH 20 mg DAILY [facility] Administration Insulin Aspart 1 vial 08/28/19 07:00 09/01/19 06:00 Novolog Vial Sliding Scale - SQ Not Given ACHS [facility] Protocol Lisinopril 10 mg 08/29/19 10:00 08/31/19 10:28 Prinivil PO 10 mg DAILY [facility] Administration ASSESSMENT/PLAN: Darian Ortiz is an 83 year old male with a past medical history of afib ( on Eliquis) HTN, Stage 3 CKD, DM, 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 Shortness of breath 2/2 R sided pleural effusion - CT shows large RT side d pleural effusion - Could be 2/2 CHF given echo findings showing reduced EF, valvular disease vs possible malignancy given pt's age and smoking history. - will continue lasix 20IVP, plan to d/c if pt's Cr worsens. - echo- borderline reduced EF (50%) with Mitral stenosis. - IR consulted for thoracentesis - will assess fluid for transudate vs exudate. - will restart eliquis 5BID two days after thoracentesis (09/03) if pt is still here or notify pt to restart then as o/p. - Pleural fluid: 204,181 fluid wbc's and rbc's respectively, the rest of the fluid analysis is pending. CKD - likely in setting of HTN and DM - UA noting proteinuria - urine electrolytes, urine and serum osms, for measurment of TTKG - renal/bladder U/S showing b/l hydronephrosis and anuria. - CPK, PTH levels Elevated biluribin/alk Phos - T bili, direct bili slight elevation - RUQ U/S normal, normal cbd diameter for pts age. DM - BGM ACHS - ISS - A1c Afib - hold Eliquis for now in setting of possible thoracentesis with IR HTN - resume home meds when confirmed with pharmacy DVT PPx - SCDs until can resume chemical prophylaxis with home Eliquis FEN - no standing fluids, caution with fluids in setting of pleural effusion and questionable poor heart function - continue to monitor electrolytes and replete as necessary, hyperkalemia resolved Visit type - Emergency Visit Emergency Visit: Yes ED Registration Date: 08/27/19 Care time: The patient presented to the Emergency Department on the above date and was hospitalized for further evaluation of their emergent condition. - New Patient This patient is new to me today: No - Critical Care Critical Care patient: No - Discharge Referral Referred to [facility] Med P.C[facility] No ATTENDING PHYSICIAN STATEMENT I saw and evaluated the patient. I reviewed the resident's note and discussed the case with the resident. I agree with the resident's findings and plan as documented. SUBJECTIVE: OBJECTIVE: ASSESSMENT AND PLAN:
[2019-09-01] MEDS: LISINOPRIL 10 MG TABLET (FP) PO SCH (12:14)
[2019-09-01] MEDS: FUROSEMIDE 40 MG/4 ML INJECTABLE VIAL IVPUSH SCH (12:14)
--- NOTE | 2019-09-01 13:58 | PN ---
Teaching Attending Note Name of Resident: Louis Manning ATTENDING PHYSICIAN STATEMENT I saw and evaluated the patient. I reviewed the resident's note and discussed the case with the resident. I agree with the resident's findings and plan as documented. Seen and examined; please see resident note for further historical information. I personally verified all earl historical information and exam findings. Personally interpreted all imaging and diagnostics and reviewed appropriate consults. I reviewed all labs and vital signs as per resident note and EMR as documented. I agree with the above assessment and plan unless supplemented by myself in the following. Seen and examined, in good spirits, awaiting thoracentesis. States his breathing is stable and that he did not have any chest pain overnight 10 item review of systems completed and is negative aside from as discussed in the subjective data in my own/the resident documentation. VS, labs, imaging reviewed NAD, AAO, resting comfortably in bed. RRR s1/2 no mgr Normal muscle tone, moves all 5 extremities with normal apparent strength Neck is supple, trachea midline, no zeb LN Lungs mostly CTAB with scattered crackles, w/ sym exp NT ND +BS no zeb organomegaly CN2-12 wnl; no FND NC AT EOMI PERRLA Normal mood, appropriate behavior, euthymic affect No skin breakdown or rashes noted Imaging and labs reviewed ASSESSMENT AND PLAN: Patient is 83-year-old male presenting to the hospital with a chief complaint of shortness of breath found to have pleural effusion is pending thoracentesis today. Studies will be sent out and we will follow-up. They have no issues that are described as new. Problems include: Right pleural effusion Paroxysmal atrial fibrillation Acute versus chronic renal failure Hypertension Diabetes CVA history Elevated bilirubin with gallstones on right upper quadrant ultrasound, follow- up with surgery and outpatient
--- NOTE | 2019-09-01 14:07 | PN ---
Progress Note, Physician Chief Complaint: sitting in chair No CP, SOB, palps - Current Medication List Current Medications: Active Medications Furosemide (Lasix Injection -) 20 mg IVPUSH DAILY [facility] Last Admin: 09/01/19 12:14 Dose: 20 mg Insulin Aspart (Novolog Vial Sliding Scale -) 1 vial SQ ACHS [facility]; Protocol Last Admin: 09/01/19 12:12 Dose: 2 unit Lisinopril (Prinivil) 10 mg PO DAILY [facility] Last Admin: 09/01/19 12:14 Dose: 10 mg - Objective Vital Signs: Vital Signs Temperature 97.7 F 09/01/19 06:00 Pulse Rate 64 09/01/19 06:00 Respiratory Rate 20 09/01/19 06:00 Blood Pressure 125/51 L 09/01/19 06:00 O2 Sat by Pulse Oximetry (%) 94 L 08/31/19 21:00 Constitutional: Yes: No Distress Cardiovascular: Yes: Pulse Irregular Respiratory: Yes: Other (decreased breath sounds right base) Gastrointestinal: Yes: Soft Edema: No Neurological: Yes: Alert, Oriented Labs: CBC, BMP 09/01/19 08:25 09/01/19 08:25 INR, PTT INR 1.23 (0.83-1.09) H 08/29/19 10:17 Assessment/Plan echo 08/2019: lvh, lvef 50, nl rv, lae, mild ms, mild mr, mod tr, rvsp 30-40, mild ar ecg: afib, rate 73, old irbbb cxr: large r eff mibi 07/2016: no ischemia a/p: 83 m hx dm, htn, pafib, cva here with sob. sob, right pleural eff: -etiology unclear, does not appear to be chf -cont iv lasix for now, daily chem7 -s/p thoracentesis -pulm following htn: -cont home afia pafib: -rate controlled w/o meds -Resume AC when deemed safe to do so s/p thoracentesis
[2019-09-01 15:11] LABS: BF WBC & OTHER NUCLEATED CELLS 204 /mm3
[2019-09-01 16:09] LABS: BODY FLUID MONOCYTE 15 %; BODYL FLD EOSINOPHIL 65 %
[2019-09-02] MEDS: INSULIN SLIDING SCALE (NOVOLOG) 1 VIAL SQ SCH ×4 (06:02→23:25)
--- NOTE | 2019-09-02 08:38 | PN ---
Progress Note (short form) - Note Progress Note: Breathing is improved after thoracentesis yesterday. Fluid analysis pending. No chest pain or cough. No acute events overnight. Intake & Output 08/30/19 08/31/19 09/01/19 09/02/19 23:59 23:59 23:59 23:59 Intake Total 600 450 400 Output Total 200 425 Balance 400 450 -25 Last Vital Signs Temp Pulse Resp BP Pulse Ox 98.2 F 63 20 110/61 98 09/02/19 06:00 09/02/19 06:00 09/02/19 06:00 09/02/19 06:00 09/01/19 21:00 Active Medications Apixaban (Eliquis -) 5 mg PO BID [facility] Furosemide (Lasix Injection -) 20 mg IVPUSH DAILY [facility] Last Admin: 09/01/19 12:14 Dose: 20 mg Insulin Aspart (Novolog Vial Sliding Scale -) 1 vial SQ ACHS [facility]; Protocol Last Admin: 09/02/19 06:02 Dose: Not Given Lisinopril (Prinivil) 10 mg PO DAILY [facility] Last Admin: 09/01/19 12:14 Dose: 10 mg Gen: NAD at rest Heart: RRR Lung: clear Abd: soft, nontender Ext: no edema Laboratory Results - last 24 hr 09/01/19 09/01/19 09/01/19 08:25 08:25 11:00 WBC 4.3 RBC 4.01 Hgb 12.1 Hct 35.4 MCV 88.1 MCH 30.1 MCHC 34.1 RDW 15.0 Plt Count 198 MPV 8.7 Absolute Neuts (auto) 2.7 Neutrophils % 64.1 Lymphocytes % 16.1 Monocytes % 15.8 H Eosinophils % 3.6 D Basophils % 0.4 Nucleated RBC % 0 Sodium 139 Potassium 4.9 Chloride 105 Carbon Dioxide 31 Anion Gap 3 L BUN 25.8 H Creatinine 1.3 Est GFR (CKD-EPI)AfAm 58.07 Est GFR (CKD-EPI)NonAf 50.10 POC Glucometer Random Glucose 116 H Calcium 8.9 Total Bilirubin 1.1 H AST 31 ALT 22 Alkaline Phosphatase 233 H Total Protein 6.4 Albumin 3.1 L Fluid WBC 204 Fluid RBC 181 Fluid Neutrophils 11 Fluid Lymphocytes 9 Pleural Monocytes 15 Pleural Eosinophils 65 09/01/19 09/01/19 09/01/19 12:11 16:48 21:49 WBC RBC Hgb Hct MCV MCH MCHC RDW Plt Count MPV Absolute Neuts (auto) Neutrophils % Lymphocytes % Monocytes % Eosinophils % Basophils % Nucleated RBC % Sodium Potassium Chloride Carbon Dioxide Anion Gap BUN Creatinine Est GFR (CKD-EPI)AfAm Est GFR (CKD-EPI)NonAf POC Glucometer 214 107 147 Random Glucose Calcium Total Bilirubin AST ALT Alkaline Phosphatase Total Protein Albumin Fluid WBC Fluid RBC Fluid Neutrophils Fluid Lymphocytes Pleural Monocytes Pleural Eosinophils 09/02/19 05:29 WBC RBC Hgb Hct MCV MCH MCHC RDW Plt Count MPV Absolute Neuts (auto) Neutrophils % Lymphocytes % Monocytes % Eosinophils % Basophils % Nucleated RBC % Sodium Potassium Chloride Carbon Dioxide Anion Gap BUN Creatinine Est GFR (CKD-EPI)AfAm Est GFR (CKD-EPI)NonAf POC Glucometer 99 Random Glucose Calcium Total Bilirubin AST ALT Alkaline Phosphatase Total Protein Albumin Fluid WBC Fluid RBC Fluid Neutrophils Fluid Lymphocytes Pleural Monocytes Pleural Eosinophils A/P Right Pleural Effusion Paroxysmal Atrial Fibrillation Acute vs Chronic Renal Failure HTN DM h/o CVA - Follow pleural fluid analysis - Lasix - monitor urine output, creatinine - rate controlled Dr Cardenas
--- NOTE | 2019-09-02 09:31 | PN ---
Teaching Attending Note Name of Resident: Louis Manning ATTENDING PHYSICIAN STATEMENT I saw and evaluated the patient. I reviewed the resident's note and discussed the case with the resident. I agree with the resident's findings and plan as documented. Seen and examined; please see resident note for further historical information. I personally verified all earl historical information and exam findings. Personally interpreted all imaging and diagnostics and reviewed appropriate consults. I reviewed all labs and vital signs as per resident note and EMR as documented. I agree with the above assessment and plan unless supplemented by myself in the following. Seen and examined, doing well post thoracentesis with improved shortness of breath still somewhat present. No further complaints this morning. Spoke with interventional radiology and they stated we may resume the Eliquis tomorrow morning. Fluid studies are still pending from the thoracentesis. They will continue with her SEVERINO inhibitor, blood pressure is been stable. No neurologic abnormalities, denies any chest pain or other cardiac symptoms 10 item review of systems completed and is negative aside from as discussed in the subjective data in my own/the resident documentation. VS, labs, imaging reviewed NAD, AAO, resting comfortably in bed. RRR s1/2 no mgr Normal muscle tone, moves all 5 extremities with normal apparent strength Neck is supple, trachea midline, no zeb LN Lungs with increased aeration especially noted over the right side status post thoracentesis, no abnormalities at the procedure site. With symmetrical expansion of the chest wall. NT ND +BS no zeb organomegaly CN2-12 wnl; no FND NC AT EOMI PERRLA Normal mood, appropriate behavior, euthymic affect No skin breakdown or rashes noted Microbiology reviewed, pending final cultures. Fluid studies pending. Echocardiogram reviewed Vital signs stable ASSESSMENT AND PLAN: Patient presents with shortness of breath secondary to a right-sided pleural effusion. He has paroxysmal atrial fibrillation and his heart rate is been controlled, he will resume his Eliquis tomorrow morning. Cardiology and pulmonology are following. Fluid studies are pending. He will continue to follow-up his CMP and can follow-up for his gallbladder issues as an outpatient as the patient does not have any acute issues with cholecystitis, worsening liver function, etc. etc. He is tolerating his SEVERINO inhibitor. He is doing well status post thoracentesis and we will await the follow-up studies, convert to p.o. Lasix, and consultants will discuss with us. Hopeful discharge in 24 to 48 hours pending further discussion.
[2019-09-02] MEDS: LISINOPRIL 10 MG TABLET (FP) PO SCH (10:48)
[2019-09-02] MEDS: FUROSEMIDE 40 MG/4 ML INJECTABLE VIAL IVPUSH SCH (10:48)
--- NOTE | 2019-09-02 11:33 | PN ---
Physical Exam: SUBJECTIVE: Patient seen and examined at bedside. No acute complaints. Denies any cp, sob, abd pain, fever, chills overnight. Would like to go home as soon as possible. OBJECTIVE: Vital Signs Period Temp Pulse Resp BP Sys/Medina Pulse Ox Last 24 Hr 97.2 F-98.2 F 63-85 20-20 101-130/43-64 98 ENERAL: The patient is awake, alert, and fully oriented, in no acute distress. NECK: Trachea midline, full range of motion, supple. LUNGS: decreased tactile fremitus in RLL and decreased bs in RLL. HEART: Regular rate and rhythm, S1, S2 without murmur, rub or gallop. ABDOMEN: Soft, nontender, nondistended, normoactive bowel sounds EXTREMITIES: 2+ pulses, warm, well-perfused, no edema. SKIN: bruising on face Laboratory Results - last 24 hr 09/01/19 09/01/19 09/01/19 11:00 12:11 16:48 POC Glucometer 214 107 Fluid Source Pleural Fluid WBC 204 Fluid RBC 181 Fluid Neutrophils 11 Fluid Lymphocytes 9 Pleural Monocytes 15 Pleural Eosinophils 65 09/01/19 09/02/19 21:49 05:29 POC Glucometer 147 99 Fluid Source Fluid WBC Fluid RBC Fluid Neutrophils Fluid Lymphocytes Pleural Monocytes Pleural Eosinophils Active Medications Generic Name Dose Route Start Last Admin Trade Name Dorothy PRN Reason Stop Dose Admin Apixaban 5 mg 09/03/19 22:00 Eliquis - PO BID [facility] Furosemide 20 mg 08/31/19 10:00 09/02/19 10:48 Lasix Injection - IVPUSH Not Given DAILY [facility] Insulin Aspart 1 vial 08/28/19 07:00 09/02/19 06:02 Novolog Vial Sliding Scale - SQ Not Given ACHS [facility] Protocol Lisinopril 10 mg 08/29/19 10:00 09/02/19 10:48 Prinivil PO Not Given DAILY [facility] ASSESSMENT/PLAN: Darian Ortiz is an 83 year old male with a past medical history of afib ( on Eliquis) HTN, Stage 3 CKD, DM, 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 Shortness of breath 2/2 R sided pleural effusion - CT shows large RT side d pleural effusion - Could be 2/2 CHF given echo findings showing reduced EF, valvular disease vs possible malignancy given pt's age and smoking history. - will continue lasix 20IVP, plan to d/c if pt's Cr worsens. - echo- borderline reduced EF (50%) with Mitral stenosis. - IR consulted for thoracentesis - will assess fluid for transudate vs exudate. - will restart eliquis 5BID two days after thoracentesis (09/03) if pt is still here or notify pt to restart then as o/p. - Pleural fluid: 204,181 fluid wbc's and rbc's respectively, fluid lymph-9, fluid monocytes 15, neuts- 11, the rest of the fluid analysis is pending. - will transition to PO lasix awaiting pulm/cardio recs, likely will d/c in 24- 48 hrs. CKD - likely in setting of HTN and DM - UA noting proteinuria - urine electrolytes, urine and serum osms, for measurment of TTKG - renal/bladder U/S showing b/l hydronephrosis and anuria. - CPK, PTH levels Elevated biluribin/alk Phos - T bili, direct bili slight elevation - RUQ U/S normal, normal cbd diameter for pts age. DM - BGM ACHS - ISS - A1c Afib - hold Eliquis for now in setting of possible thoracentesis with IR HTN - resume home meds when confirmed with pharmacy DVT PPx - SCDs until can resume chemical prophylaxis with home Eliquis FEN - no standing fluids, caution with fluids in setting of pleural effusion and questionable poor heart function - continue to monitor electrolytes and replete as necessary, hyperkalemia resolved Visit type - Emergency Visit Emergency Visit: Yes ED Registration Date: 08/27/19 Care time: The patient presented to the Emergency Department on the above date and was hospitalized for further evaluation of their emergent condition. - New Patient This patient is new to me today: No - Critical Care Critical Care patient: No - Discharge Referral Referred to [facility] Med P.C.: No ATTENDING PHYSICIAN STATEMENT I saw and evaluated the patient. I reviewed the resident's note and discussed the case with the resident. I agree with the resident's findings and plan as documented. SUBJECTIVE: OBJECTIVE: ASSESSMENT AND PLAN:
[2019-09-02] MEDS ORDERED: FUROSEMIDE 40 MG TABLET (FP) PO ONE (13:30)
[2019-09-02 14:10] LABS: BODY FLUID ALBUMIN 2.1 g/dL (Not Estab.)
--- NOTE | 2019-09-02 14:11 | PATH ---
Cytology Non-Gynecological Report Patient Name: JAYDE AYOUB Med. Rec. #: [id number] /Age/Gender: 1935 (Age: 83) / M Account: [id number] Location: [address] [place] [address]/[facility] Taken: 09/01/2019 Received: 09/01/2019 Reported: 09/02/2019 Physicians: Smith Tyson MD Specimen(s) Received A: RIGHT PLEURAL FLUID B: RIGHT PLEURAL FLUID Clinical History Pleural effusion Final Diagnosis A-B. PLEURAL FLUID, RIGHT, THORACENTESIS: SATISFACTORY FOR EVALUATION NO MALIGNANT CELLS IDENTIFIED. MESOTHELIAL CELLS, MACROPHAGES, AND RARE LYMPHOCYTES PRESENT. Electronically Signed Kimberli Silverio M.D. Gross Description A. Approximately 50 cc of yellow cloudy fluid received fixed in 50% alcohol. One cytofunnel prepared and Pap stained. One cellblock prepared. B. Approximately 1600 cc of yellow fluid received fresh. One cytofunnel prepared and Pap stained. One cellblock prepared.
--- NOTE | 2019-09-02 14:19 | PN ---
Progress Note (short form) - Note Progress Note: s: no cp palps dizzy; sob better Current Medications Generic Name Dose Route Start Last Admin Trade Name Dorothy PRN Reason Stop Dose Admin Apixaban 5 mg 09/03/19 22:00 Eliquis - PO BID GLADIS Furosemide 40 mg 09/03/19 11:45 Lasix - PO DAILY [facility] Insulin Aspart 1 vial 08/28/19 07:00 09/02/19 12:11 Novolog Vial Sliding Scale - SQ Not Given ACHS [facility] Protocol Lisinopril 10 mg 08/29/19 10:00 09/02/19 10:48 Prinivil PO Not Given DAILY [facility] Vital Signs Period Temp Pulse Resp BP Sys/Medina Pulse Ox Last 24 Hr 97.3 F-98.2 F 63-85 -20 91-130/43-67 98 nad no jvd irreg s1 s2 no mrg cta bl nl eff aao3 no le e/c/c abd nt nd pos bs no jaundice diaphoresis CBC, BMP 09/01/19 08:25 09/01/19 08:25 echo 08/2019: lvh, lvef 50, nl rv, lae, mild ms, mild mr, mod tr, rvsp 30-40, mild ar ecg: afib, rate 73, old irbbb cxr: large r eff mibi 07/2016: no ischemia a/p: 83 m hx dm, htn, pafib, cva here with sob. sob, right pleural eff: -etiology unclear, does not appear to be chf -s/p thoracentesis with resolution of sob. cont lasix po for short term. -pulm following -f/u fluid studies htn: -cont home afia pafib: -rate controlled w/o meds -cont eliquis
[2019-09-03] MEDS: INSULIN SLIDING SCALE (NOVOLOG) 1 VIAL SQ SCH ×3 (07:04→16:44)
--- NOTE | 2019-09-03 08:04 | PN ---
Teaching Attending Note Name of Resident: Louis Manning ATTENDING PHYSICIAN STATEMENT I saw and evaluated the patient. I reviewed the resident's note and discussed the case with the resident. I agree with the resident's findings and plan as documented. Seen and examined; please see resident note for further historical information. I personally verified all earl historical information and exam findings. Personally interpreted all imaging and diagnostics and reviewed appropriate consults. I reviewed all labs and vital signs as per resident note and EMR as documented. I agree with the above assessment and plan unless supplemented by myself in the following. Shortness of breath is simply improved, patient is doing well day 1 status post thoracentesis. Continuing Eliquis, thoracentesis looks like it may be exudative pending full fluid analysis. Continuing SEVERINO per cardiology, elucidating discharge. 10 item review of systems completed and is negative aside from as discussed in the subjective data in my own/the resident documentation. VS, labs, imaging reviewed NAD, AAO, resting comfortably in bed. RRR s1/2 no mgr Normal muscle tone, moves all 5 extremities with normal apparent strength Neck is supple, trachea midline, no zeb LN Lungs remain improved with sym expansion NT ND +BS no zeb organomegaly CN2-12 wnl; no FND NC AT EOMI PERRLA Normal mood, appropriate behavior, euthymic affect No skin breakdown or rashes noted Assessment and plan: Patient is a 83-year-old male presenting with shortness of breath secondary to a right pleural effusion with final fluid studies pending. Elucidating discharge. He continues on his Eliquis and rate control meds for his A. fib, SEVERINO inhibitor for his hypertension, diabetes is controlled, monitoring on the floor. Full code
[2019-09-03 08:48] LABS: HEMATOCRIT 33.5 % (35.4-49); HEMOGLOBIN 11.3 GM/dL (11.7-16.9); MCH 29.4 pg (25.7-33.7); MCHC 33.8 g/dl (32.0-35.9); MEAN PLT VOLUME 8.2 fl (7.5-11.1); PLATELET COUNT 193 K/MM3 (134-434); RBC 3.85 M/mm3 (4.00-5.60); RDW 15.2 % (11.9-15.9); WHITE BLOOD COUNT 4.6 K/mm3 (4.0-10.0)
[2019-09-03 09:14] LABS: ALBUMIN 2.8 g/dl (3.4-5.0); BILIRUBIN,TOTAL 1.3 mg/dL (0.2-1); BLOOD UREA NITROGEN 25.6 mg/dL (7-18); CALCIUM 8.9 mg/dL (8.5-10.1); CREATININE 1.4 mg/dL (0.55-1.3); POTASSIUM 4.3 mmol/L (3.5-5.1); TOT PROT 5.9 g/dl (6.4-8.2)
[2019-09-03] MEDS: LISINOPRIL 10 MG TABLET (FP) PO SCH (10:18)
--- NOTE | 2019-09-03 10:37 | PN ---
Progress Note (short form) - Note Progress Note: Breathing is overall improved. No chest pain or cough. No acute events overnight. Pleural fluid: Transudate Intake & Output 08/31/19 09/01/19 09/02/19 09/03/19 23:59 23:59 23:59 23:59 Intake Total 450 400 640 550 Output Total 425 890 550 Balance 450 -25 -250 0 Last Vital Signs Temp Pulse Resp BP Pulse Ox 97.6 F 83 20 117/78 96 09/03/19 10:07 09/03/19 10:07 09/03/19 10:07 09/03/19 10:07 09/02/19 21:00 Active Medications Apixaban (Eliquis -) 5 mg PO BID [facility]ADIS Furosemide (Lasix -) 40 mg PO DAILY [facility] Insulin Aspart (Novolog Vial Sliding Scale -) 1 vial SQ ACHS [facility]; Protocol Last Admin: 09/03/19 07:04 Dose: Not Given Lisinopril (Prinivil) 10 mg PO DAILY [facility] Last Admin: 09/03/19 10:18 Dose: 10 mg Gen: NAD at rest Heart: RRR Lung: clear Abd: soft, nontender Ext: no edema Intake & Output 08/31/19 09/01/19 09/02/19 09/03/19 23:59 23:59 23:59 23:59 Intake Total 450 400 640 550 Output Total 425 890 550 Balance 450 -25 -250 0 A/P Right Pleural Effusion Paroxysmal Atrial Fibrillation Acute vs Chronic Renal Failure HTN DM h/o CVA - Can consider DC Lasix and observe - rate controlled - Daily weights - Eliquis - There is no Pulmonary contraindication for DC Dr Cardenas
[2019-09-03] MEDS ORDERED: FUROSEMIDE 20 MG TABLET (FP) PO SCH ×2 (11:45)
[2019-09-03 15:27] VITALS: BMI 25.5
[2019-09-03 15:46] VITALS: BP 115/64; PULSE 71
--- NOTE | 2019-09-03 15:58 | PN ---
Progress Note (short form) - Note Progress Note: s: no cp palps dizzy, sob Current Medications Apixaban (Eliquis -) 5 mg PO BID [facility] Furosemide (Lasix -) 40 mg PO DAILY [facility] Last Admin: 09/03/19 11:49 Dose: 40 mg Insulin Aspart (Novolog Vial Sliding Scale -) 1 vial SQ ACHS [facility]; Protocol Last Admin: 09/03/19 11:38 Dose: Not Given Lisinopril (Prinivil) 10 mg PO DAILY [facility] Last Admin: 09/03/19 10:18 Dose: 10 mg Vital Signs Period Temp Pulse Resp BP Sys/Medina Pulse Ox Last 24 Hr 97.6 F-98.6 F 62-96 20-20 107-140/50-78 96-97 nad no jvd irreg s1 s2 no mrg cta bl nl eff aao3 no le e/c/c abd nt nd pos bs no jaundice diaphoresis echo 08/2019: lvh, lvef 50, nl rv, lae, mild ms, mild mr, mod tr, rvsp 30-40, mild ar ecg: afib, rate 73, old irbbb cxr: large r eff mibi 07/2016: no ischemia a/p: 83 m hx dm, htn, pafib, cva here with sob. sob, right pleural eff: -etiology unclear, does not appear to be chf -s/p thoracentesis with resolution of sob. cont lasix po for short term. -pulm following -f/u fluid studies htn: -cont home afia pafib: -rate controlled w/o meds -cont eliquis
[2019-09-03 16:08] VITALS: TEMP 97.5
[2019-09-03] MEDS ORDERED: APIXABAN 5 MG TABLET PO SCH (22:00)
== END 2019-09-03 17:07 | disposition home or self-care (01) | DRG 187 ==
LOC: JER 16:15 → MERGE 21:11 → JERBED 21:11 → J5S 08-28 02:15
PROVIDERS: ADMIT Internal Medicine; ATTEND Internal Medicine
PROC: 0W993ZX Drainage of Right Pleural Cavity, Percutaneous Approach, Diagnostic (ICD-10-PCS; principal; 2019-09-01)
DX: J90 Pleural effusion, not elsewhere classified (principal); N17.9 Acute kidney failure, unspecified; I12.9 Hypertensive chronic kidney disease with stage 1 through stage 4 chronic kidney disease, or unspecified chronic kidney disease; N18.3 Chronic kidney disease, stage 3 (moderate); E11.9 Type 2 diabetes mellitus without complications; I48.0 Paroxysmal atrial fibrillation
CPT/HCPCS: 36415; 71045-TC-FY; 71046-TC-FY; 71260-TC; 76705-TC; 76775-TC; 76856-TC; 76942; 80048; 80053; 81003; 82042; 82150; 82248; 82436; 82465; 82550; 82962; 82977; 83036; 83615; 83735; 83930; 83935; 83970; 83986; 84100; 84133; 84157; 84300; 84478; 85025; 85027; 85610; 85651; 85730; 86038; 86140; 86431; 86850; 86900; 86901; 87040; 87070; 87075; 87102; 87116; 87205; 87206; 87210; 88108; 88305-TC; 93005; 93010; 93306-TC; 97116-GP; 97161-GP; 99284-25; Q9967